=== PATIENT | male | born 1965 | race Caucasian/White ===

== ENCOUNTER 2017-03-25 07:01 | Day surgery (SDC) | payer OTHER ==
[2017-03-25] MEDS: NS 1,000 ML IV (07:12)
[2017-03-25] MEDS ORDERED: LIDOCAINE 2% INJ 100 MG/5 ML SDV (FOR ANES.) As Ordered (08:11)
[2017-03-25] MEDS ORDERED: PROPOFOL 200 MG/20 ML VIAL As Ordered (08:11)
== END 2017-03-25 08:36 | disposition home or self-care (01) ==
LOC: M OPP 07:01
DX: Z12.11 Encounter for screening for malignant neoplasm of colon (principal); K64.1 Second degree hemorrhoids; E78.5 Hyperlipidemia, unspecified; R12 Heartburn; K21.9 Gastro-esophageal reflux disease without esophagitis; Z87.891 Personal history of nicotine dependence; Z79.899 Other long term (current) drug therapy; Z80.9 Family history of malignant neoplasm, unspecified
CPT/HCPCS: 45378

== ENCOUNTER → 2020-12-28 | Outpatient (CLI) | payer OTHER ==
[~2020-12-28] MED LIST: ATOR40TA75 PO; EZET10TA21 PO; OMEP1CAP73 PO
--- NOTE | 2020-12-28 15:29 | REP ---
INDICATION: LT GROIN LUMP ? HERNIA. COMPARISON: None. TECHNIQUE: Targeted inguinal sonography. Scanning with and without Valsalva. FINDINGS: Targeted bilateral inguinal sonography is performed. Right inguinal canal measures 24 mm in AP dimension at rest and 28 mm with Valsalva. The corresponding dimensions of the left inguinal canal are 26 and 28 mm respectively. No bowel containing hernia is seen. No fluid is collection is seen. Hypoechoic fatty tissue is seen sliding within the inguinal canals bilaterally. This may be fatty hypertrophy of the spermatic cords or conceivably inguinal hernia transmitting abdominal fat. IMPRESSION: No bowel containing hernia or abnormal fluid collection is seen. Findings consistent with either lipomatous hypertrophy of the spermatic cords or fat containing inguinal hernias. CT scanning could be considered for further evaluation. <Electronically signed by Kevin Hinson > 12/28/20 1521
== END ==
LOC: M RAD 14:09
PROVIDERS: ATTEND Physician Assistant
DX: K40.90 Unilateral inguinal hernia, without obstruction or gangrene, not specified as recurrent (principal)

== ENCOUNTER → 2021-02-02 | Outpatient (CLI) | payer OTHER | LOC: M LABSMTC 11:21 | PROVIDERS: ATTEND Anesthesiology | DX: Z01.812 Encounter for preprocedural laboratory examination (principal); Z20.822 Contact with and (suspected) exposure to COVID-19 ==

== ENCOUNTER 2021-02-07 08:44 | Day surgery (SDC) | payer OTHER ==
[~2021-02-07] VITALS: Ht 177.8 cm; Wt 91.1 kg
[~2021-02-07 08:44] MED LIST changes: +LIDOCAINE 1% MDV 20ML VIAL SQ PRN; +LIDOCAINE 2% 100MG/5ML SDV (FOR ANES.) As Ordered ONE; +LR 1,000 ML IV ONE; +MIDAZOLAM INJ 2MG/2ML VIAL (J2250 PER 1MG) As Ordered ONE; +ONDANSETRON 4MG/2ML VIAL As Ordered ONE; +ROCURONIUM BROMIDE 50 MG/5 ML VIAL As Ordered ONE; +ceFAZolin SOD 2 GM in IV 1 EA IV ONE; +dexameTHASONE 4 MG/ML 1ML VIAL (J1100 PER 1MG) As Ordered ONE; +fentaNYL 100 MCG/2 ML INJECTION (J3010) As Ordered ONE; +propofoL 200 MG/20 ML VIAL As Ordered ONE
--- OUTSIDE RECORDS SUMMARY | 2021-02-07 08:51 | CCD | Continuity of Care Document ---
Author Author Myrna VeronicatowDevyn Monterroso Organization Unknown Address 3 [facility] [address] [place] [address] Phone [phone] Care Team Providers Care Hogshead Dumper Name Role Phone [facility] Cardiology - Cardiovascular Disease AUTM [phone] Problems Active Problems Provider Date Gastroesophageal reflux disease Yue Kincaid RPA Onset: 1 05/05/2004 Hyperlipidemia Yue Kincaid RPA Onset: 09/16/2005 Nocturia Daron Salamanca, RPA Onset: 03/28/2016 Hypercalcemia Daron Salamanca, RPA Onset: 04/05/2018 Social History Type Date Description Comments Sex Unknown Tobacco Use Start: Unknown End: Unknown Former Cigarette Smo ker 1/2 Pack Daily for 11 years Tobacco Use Start: Unknown Quit 1985. ETOH Use Rarely consumes beer Tobacco Use Start: Unknown End: Unknown Patient is a former smoker Exercise Type/Frequency Does not currently exerc ise Seat Belt/Car Seat yes Allergies, Adverse Reactions, Alerts Description No Known Drug Allergies Medications Active Medications SIG Qnty Indications Ordering Provide r Date Ezetimibe 10mg Tablets take one tablet by mouth every day 90tabs Reynaldo Penny D.O., FAAFP 11/2018 Eye Drops Advanced Relief Moisturizer 0.05-0.1-1-1% Solution 2 gtts tid OU 1units Reynaldo Penny D.O., FAAFP 09/22/2017 Atorvastatin Calcium 40mg Tablets take one tablet by mouth every day 90tabs Reynaldo Penny D.O., FAAFP 07/07/[address] Take One Capsule By Mouth Every Day 90caps Reynaldo Penny D.O. , FAAFP 06/04/2005 Medications Administered in Office Medication SIG Qnty Indications Ordering Provider Date Injection (SC)/(Im) Injection Daron Salamanca RPA 12/15/2019 Immunizations CPT Code Status Date Vaccine Lot # [id number] Given 12/15/2019 Influenza Virus Vaccine, Quadrivalent, Slit Virus, Im Use 3Y & Up [id number] Given 12/29/2017 Influenza Virus Vaccine, Quadrivalent, Slit Virus, Im Use 3Y & Up [id number] Refused 01/01/2016 Influenza Virus Vaccine, Quadrivalent, Slit Virus, Im Use 3Y & Up Vital Signs Date Vital Result Comment 06/27/2020 3:24pm BP Systolic 138 mmHg BP Diastolic 88 mmHg Body Temperature 97.1 F Heart Rate 97 /min Respiratory Rate 16 /min Height 71 inches 5'11" [place] Body Weight 172 lb O2 % BldC Oximetry 97 % 06/21/2020 1:31pm BP Systolic 124 mmHg BP Diastolic 88 mmHg Body Temperature 97.2 F Heart Rate 93 /min Respiratory Rate 16 /min Height 71 inches 5'11" [place] Body Weight 172 lb O2 % BldC Oximetry 96 % Results Test Acquired Date Facility Test Result H/L Range Note CMP 12/17/2020 [facility] Glu 102 mg/dL 70 - 110 BUN 14 mg/dL 8 - 23 Creat 0.9 mg/dL 0.7 - 1.2 BUN/Creatinine Ratio 15.8 Calc Na 142 mmol/L 136 - 145 K 4.7 mmol/L 3.5 - 5.1 CL 101.5 mmol/L 98.0 - 107.0 Co2 24.0 mmol/L 22.0 - 29.0 CA 10.2 mg/dL 8.6 - 10.2 TP 6.9 g/dL 6.6 - 8.7 Alb 4.9 g/dL 3.5 - 5.2 A/G Ratio 2.4 Calc Globulin 2.0 Calc Alp 118.7 U/L 40 - 129 Alt (SGPT) 26 U/L 0 - 41 Ast (Sgot) 18 U/L 0 - 40 Tbili 0.26 mg/dL 0.0 - 1.2 Osmolality-Calculated 283.2 Calc Anion Gap 21 mmol/L eGFR 109 # Calc 1 eGFR Non-Afr. [place] 94 # Calc 2 Lipid Panel 12/17/2020 [facility] Chol 222 mg/dL High 0 - 200 Trig 179 mg/dL 35 - 200 HDL 53 mg/dL 35 - 55 LDL_C 133 Calc High 75 - 129 Cho/HDL Ratio 4.2 CALC Surgical/Pathology 06/21/2020 [facility] [place] . See Comment: 3, 4 . See Comment: 5 . See Comment: 6 . See Comment: 7 . See Comment: 8 . See Comment: 9 . See Comment: 10 1 CKD-EPI 2 CKD-EPI 3 [id number] Material submitted: . buttock - CLIP, LEFT BUTTOCK 5 Clinician provided ICD-10: D48.5 6 Diagnosis: HYPERKERATOTIC FIBROEPITHELIAL PAPILLOMA, LEFT BUTTOCK, SHOWING VASCULAR CONGESTION AND THROMBOSIS. CIF 06/25/2020 1042 Local 7 Electronically signed: . Daron Aceves MD, Pathologist 8 Gross description: . Specimen received in formalin labeled "left buttock clip" is a 1.5 x 1.0 x 0.7 cm wrinkled clemente polypoid skin fragme nt with focal skin slippage. The cut surface is prominent congestion. No foreign body is identified. Cut surface has prominent congested vessels. It is bisected and submitted entirely. (1 block) DE /KWI 06/22/2020 1338 Local 9 Pathologist provided ICD-10: D23.5 10 CPT . 414983 Procedures Date Code Description Status 06/21/2020 63501 Excise Benign Lesion 1.1 To 2.0C M Trunk/Arm/Leg Completed Medical Devices Description No Information Available Encounters Type Date Location Provider Dx Diagnosis Office Visit 06/27/2020 3:15[facility] Office Daron Salamanca, RP A D48.5 Neoplasm of uncertain behavior of skin Z48.02 Encounter for removal of sut ures Assessments Date Code Description Provider 06/27/2020 D48.5 Neoplasm of uncertain behavior o f skin Daron Salamanca, RPA 06/27/2020 Z48.02 Encounter for removal of sutures Daron Salamanca, RPA 06/21/2020 D48.5 Neoplasm of uncertain behavior o f skin Daron Salamanca, LAURIE Plan of Treatment Future Appointment(s):* 12/24/2020 10:40 am - Daron Salamanca RPA at [facility][Note 3] Functional Status Description No Information Available Mental Status Description No Information Available Referrals Description No Information Available
--- OUTSIDE RECORDS SUMMARY | 2021-02-07 08:51 | CCD | Continuity of Care Document ---
Author Author Myrna VeronicatowDevyn Monterroso Organization Unknown Address 3 [facility] [address] [place] [address] Phone [phone] Care Team Providers Care Film Printer Name Role Phone [facility] Cardiology - Cardiovascular Disease AUTM [phone] Problems Active Problems Provider Date Gastroesophageal reflux [...] CPT Code Status Date Vaccine Lot # [id number] Given 12/15/2019 Influenza Virus Vaccine, Quadrivalent, Slit Virus, Im Use 3Y & Up [id number] 02244 Given 12/29/2017 Influenza Virus Vaccine, Quadrivalent, Slit Virus, Im Use 3Y & Up [id number] Refused 01/01/2016 Influenza Virus Vaccine, Quadrivalent, Slit Virus, Im Use 3Y & Up Vital Signs Date Vital Result Comment 06/27/2020 3:24pm BP Systolic 138 mmHg BP Diastolic 88 mmHg Body Temperature 97.1 F Heart Rate 97 /min Respiratory Rate 16 /min Height 71 inches 5'11" [place] Body Weight 172 lb O2 % BldC Oximetry 97 % 06/21/2020 1:31pm BP Systolic 124 mmHg BP Diastolic 88 mmHg Body Temperature 97.2 F Heart Rate 93 /min Respiratory Rate 16 /min Height 71 inches 5'11" [place] Body Weight 172 lb O2 % BldC [...] eGFR 109 # Calc 1 eGFR Non-Afr. Malag[place] 94 # Calc 2 Lipid Panel 12/17/2020 [...] Comment: 10 1 CKD-EPI 2 CKD-EPI 3 [id number] Material submitted: . buttock - CLIP, [...] Pathologist provided ICD-10: D23.5 10 CPT . 131934 Procedures Date Code Description Status 06/21/2020 05423 Excise Benign Lesion 1.1 To 2.0C M Trunk/Arm/Leg Completed Medical Devices Description No Information Available Encounters Type Date Location Provider Dx Diagnosis Office Visit 06/27/2020 3:15[facility] Daron Salamanca, RP A D48.5 Neoplasm of uncertain behavior of skin Z48.02 Encounter for removal of sut ures Assessments Date Code Description Provider 12/17/2020 E78.5 Hyperlipidemia, unspecified [facility] Adán luevano M.D. 12/17/2020 E78.5 Hyperlipidemia, unspecified [facility] [place] Schedule 06/27/2020 D48.5 Neoplasm of uncertain behavior o f skin Daron Salamanca, RPA 06/27/2020 Z48.02 Encounter for removal of sutures Daron Salamanca, RPA 06/21/2020 D48.5 Neoplasm of uncertain behavior o f skin Daron Salamanca, RPA Plan of Treatment Future Appointment(s):* 12/24/2020 10:40 am - Daron Salamanca, LAURIE at [facility] Functional Status Description No Information Available Mental Status Description No Information Available Referrals Description No Information Available
--- OUTSIDE RECORDS SUMMARY | 2021-02-07 08:51 | CCD | Continuity of Care Document ---
Author Devyn Nicole DO Organization Unknown Address [address] [facility], [address] [place] [address] Phone [phone] Care Team Providers Care Coloring Room Worker Name Role Phone [facility] [phone] Problems Description No Information Available Social History Type Date Description Comments Sex Unknown ETOH Use Denies alcohol use Recreational Drug Use Denies Drug Use Tobacco Use Start: Unknown End: Unknown Patient is a former smoker Allergies and adverse reactions Description No Known Drug Allergies Medications Active Medications SIG Qnty Indications Ordering Provide r Date Atorvastatin Calcium 40mg Tablets once daily Unknown Ezetimibe 10mg Tablets once d aily Unknown Omeprazole 20mg Capsules DR 20 mg by mouth daily Unknown Immunizations Description No Information Available Vital Signs Date Vital Result Comment 01/17/2021 9:41am BP Systolic 162 mmHg BP Diastolic 96 mmHg Body Temperature 99.1 F Height 70 inches 5'10" Weight 202.50 lb BMI (Body Mass Index) 29.1 kg/m2 [place] Body Weight 166 lb Weight 91.854 kg BSA (Body Surface Area) 2.10 m2 03/10/2017 10:15am BP Systolic 152 mmHg BP Diastolic 72 mmHg Height 70 inches 5'10" Weight 196.12 lb BMI (Body Mass Index) 28.1 kg/m2 [place] Body Weight 166 lb Weight 88.962 kg BSA (Body Surface Area) 2.07 m2 Results Description No Information Available Procedures Description No Information Available Medical Devices Description No Information Available Encounters Description No Information Available Assessments Date Code Description Provider 01/17/2021 K40.90 Unilateral inguinal hernia, without obstruction or gangrene, not specified as recurrent Carlton Anthony DO Plan of Treatment Future Appointment(s):* 02/19/2021 9:45 am - Carlton Anthony DO at [facility] * 02/07/2021 10:45 am - Carlton Anthony DO at [facility] 01/17/2021 - Carlton Anthony DO* K40.90 Unilateral inguinal hernia, without obstruction or gangrene, not specified as recurrent* Comments:* 55 y/o male presents with physical exam findings of left inguinal hernia. Recommendation at this time is to proceed with robotic assisted laparoscopic repair of the left hernia. The risks and benefits of the procedure were discussed in detail. The risks include, but are not limited to bleeding, infection, damage to gabbie rounding structures (arteries, veins, nerves, or bowel), need for open surgery, possibility of recurrance, and possible testicle loss. He understands the risks and elects to proceed with surgery. Functional Status Description No Information Available Mental Status Description No Information Available Referrals Refer to Reason for Referral Status Appt Date Carlton Anthony DKristiO. LT INGUINAL MASS Scheduled [address] [place] [address] [phone]
--- OUTSIDE RECORDS SUMMARY | 2021-02-07 08:51 | CCD | Continuity of Care Document ---
Author Author Devyn SALAMANAC [facility] Organization Unknown Address 3 [facility] [address] [place] [address] Phone [phone] Care Team Providers Care Appeals Representative Name Role Phone [place] [facility] [place] Cardiology - Cardiovascular Disease AUTM [phone] Problems Active Problems Provider Date Gastroesophageal reflux disease Yue Kincaid RPA Onset: 1 05/05/2004 Hyperlipidemia Yue Kincaid RPA Onset: 09/16/2005 Nocturia Daron Salamanca RPA Onset: 03/28/2016 Hypercalcemia Daron Salamanca RPA Onset: 04/05/2018 Social History Type Date [...] SIG Qnty Indications Ordering Provide r Date Kate Covid-19 Vaccine 0.5ml [facility] Reynaldo Penny D.O., [facility] Ezetimibe 10mg Tablets take one tablet by [...] CPT Code Status Date Vaccine Lot # 42329 Given 12/24/2020 Influenza Virus Vaccine, Quadrivalent, Slit Virus, Im Use 3Y & Up [id number] Given 12/15/2019 Influenza Virus Vaccine, Quadrivalent, Slit Virus, Im Use 3Y & Up [id number] 94700 Given 12/29/2017 Influenza Virus Vaccine, Quadrivalent, Slit Virus, Im Use 3Y & Up [id number] Refused 01/01/2016 Influenza Virus Vaccine, Quadrivalent, Slit Virus, Im Use 3Y & Up Vital Signs Date Vital Result Comment 12/24/2020 10:44am BP Systolic 120 mmHg BP Diastolic 90 mmHg Body Temperature 97.8 F Heart Rate 95 /min Respiratory Rate 16 /min Height 71 inches 5'11" Weight 199.00 lb [place] Body Weight 172 lb BMI (Body Mass Index) 27.8 kg/m2 O2 % BldC Oximetry 98 % 06/27/2020 3:24pm BP Systolic 138 mmHg BP Diastolic 88 mmHg Body Temperature 97.1 F Heart Rate 97 /min Respiratory Rate 16 /min Height 71 inches 5'11" [place] Body Weight 172 lb O2 % BldC Oximetry 97 % Results Test Acquired Date Facility Test [...] eGFR 109 # Calc 1 eGFR Non-Afr. [place] 94 # Calc 2 Lipid Panel 12/17/2020 [facility] Chol 222 mg/dL High 0 - 200 Trig 179 mg/dL 35 - 200 HDL 53 mg/dL 35 - 55 LDL_C 133 Calc High 75 - 129 Cho/HDL Ratio 4.2 CALC 1 CKD-EPI 2 CKD-EPI Procedures Description No Information Available Medical Devices Description No Information Available Encounters Type Date Location Provider Dx Diagnosis Office Visit 06/27/2020 3:15p [facility] Daron Salamanca, RP A D48.5 Neoplasm of uncertain behavior of skin Z48.02 Encounter for removal of sut ures Assessments Date Code Description Provider 12/24/2020 K40.90 Unilateral inguinal hernia, without obstruction or gangrene, not specified as recurrent Daron Salamanca RPA 12/24/2020 E78.5 Hyperlipidemia, unspecified Daron Barger RPA 12/24/2020 K21.9 Gastro-esophageal reflux disease without esophagitis Daron Salamanca, LAURIE 12/17/2020 E78.5 Hyperlipidemia, unspecified [facility] Adán luevano M.D. 12/17/2020 E78.5 Hyperlipidemia, unspecified [facility] Schedule 06/27/2020 D48.5 Neoplasm of uncertain behavior o f skin Daron Salamanca RPA 06/27/2020 Z48.02 Encounter for removal of sutures Daron Salamanca RPA Plan of Treatment Future Appointment(s):* 07/01/2021 8:30 am - Daron Salamanca RPA at [facility] * 06/24/2021 9:00 am - Laboratory [facility] Schedule at [facility] [place] Functional Status Description No Information Available Mental Status Description No Information Available Referrals Description No Information Available
--- OUTSIDE RECORDS SUMMARY | 2021-02-07 08:51 | CCD | Continuity of Care Document ---
Author Author Devyn SALAMANCA [facility] Organization Unknown Address [address] [facility] [address] [place] [address] Phone [phone] Care Team Providers Care Supervisor Typesetting Name Role Phone [facility] [place] Cardiology - Cardiovascular Disease AUTM [phone] Problems Active Problems Provider Date Gastroesophageal reflux [...] Provide r Date Kate Covid-19 Vaccine 0.5ml [facility] Reynaldo Penny D.O., [facility] Ezetimibe 10mg Tablets take one tablet by [...] CPT Code Status Date Vaccine Lot # 43498 Given 12/24/2020 Influenza Virus Vaccine, Quadrivalent, Slit Virus, Im Use 3Y & Up [id number] 03102 Given 12/15/2019 Influenza Virus Vaccine, Quadrivalent, Slit Virus, Im Use 3Y & Up [id number] [id number] Given 12/29/2017 Influenza Virus Vaccine, Quadrivalent, Slit Virus, Im Use 3Y & Up [id number] Refused 01/01/2016 Influenza Virus Vaccine, Quadrivalent, Slit Virus, Im Use 3Y & Up Vital Signs Date Vital Result Comment 12/24/2020 10:44am BP Systolic 120 mmHg BP Diastolic 90 mmHg Body Temperature 97.8 F Heart Rate 95 /min Respiratory Rate 16 /min Height 71 inches 5'11" Weight 199.00 lb [place] Body Weight 172 lb BMI (Body Mass Index) 27.8 kg/m2 O2 % BldC Oximetry 98 % 06/27/2020 3:24pm BP Systolic 138 mmHg BP Diastolic 88 mmHg Body Temperature 97.1 F Heart Rate 97 /min Respiratory Rate 16 /min Height 71 inches 5'11" [place] Body Weight 172 lb O2 % BldC [...] eGFR 109 # Calc 1 eGFR Non-Afr. [place]vian 94 # Calc 2 Lipid Panel 12/17/2020 [facility]house Chol 222 mg/dL High 0 - 200 Trig 179 mg/dL 35 - 200 HDL 53 mg/dL 35 - 55 LDL_C 133 Calc High 75 - 129 Cho/HDL Ratio 4.2 CALC 1 CKD-EPI 2 CKD-EPI Procedures Date Code Description Status 12/24/2020 25209 Office/Outpatient Established Mo d MDM 30-39 Min Completed Medical Devices Description No Information Available Encounters Type Date Location Provider Dx Diagnosis Office Visit 12/24/2020 10:40a [place] [facility] Daron Salamanca, RP A K40.90 Unil inguinal hernia, w/o obst or gangr, not spcf as recur E78.5 Hyperlipidemia, unspecified K21.9 Gastro-esophageal reflux dis ease without esophagitis Z23 Encounter for immunization Office Visit 06/27/2020 3:15p [place] [facility] Daron Salamanca, RP A D48.5 Neoplasm of uncertain behavior of skin Z48.02 Encounter for removal of sut ures Assessments Date Code Description Provider 12/24/2020 K40.90 Unilateral inguinal hernia, without obstruction or gangrene, not specified as recurrent Daron Salamanca, RPA 12/24/2020 E78.5 Hyperlipidemia, unspecified Daron Barger, RPA 12/24/2020 K21.9 Gastro-esophageal reflux disease without esophagitis Daron Salamanca, RPA 12/24/2020 Z23 Encounter for immunization Daron Quinn, RPA 12/17/2020 E78.5 Hyperlipidemia, unspecified [facility] Adán luevano M.D. 12/17/2020 E78.5 Hyperlipidemia, unspecified [facility] [place] Schedule 06/27/2020 D48.5 Neoplasm of uncertain behavior o f skin Daron Salamanca, RPA 06/27/2020 Z48.02 Encounter for removal of sutures Daron Salamanca, RPA Plan of Treatment Future Appointment(s):* 07/01/2021 8:30 am - Daron Salamanca RPA at [facility] * 06/24/2021 9:00 am - Laboratory [place] Schedule at [facility] Functional Status Description No Information Available Mental Status Description No Information Available Referrals Description No Information Available
--- OUTSIDE RECORDS SUMMARY | 2021-02-07 08:51 | CCD | Continuity of Care Document ---
Author Author Devyn ANTHONY DO Organization Unknown Address [address], [address] [place] [address] Phone [phone] Care Team Providers Care Job Press Operator Name Role Phone Daron Salamanca [facility] [phone] Problems Description No Information Available Social [...] lb BMI (Body Mass Index) 29.1 kg/m2 [place] Body Weight 166 lb Weight 91.854 kg BSA (Body Surface Area) 2.10 m2 03/10/2017 10:15am BP Systolic 152 mmHg BP Diastolic 72 mmHg Height 70 inches 5'10" Weight 196.12 lb BMI (Body Mass Index) 28.1 kg/m2 [place] Body Weight 166 lb Weight 88.962 kg BSA (Body Surface Area) 2.07 m2 Results Description No Information Available Procedures Date Code Description Status 01/17/2021 21682 Office/Outpatient New Moderate M DM 45-59 Minutes Completed Medical Devices Description No Information Available Encounters Type Date Location Provider Dx Diagnosis Office Visit 01/17/2021 9:30a [facility] Carlton Anthony DO K40.90 Unil inguinal hernia, w/o obst or gangr, not spcf as recur Assessments Date Code Description Provider 01/17/2021 K40.90 Unilateral inguinal hernia, without obstruction or gangrene, not specified as recurrent Carlton Anthony DO Plan of Treatment Future Appointment(s):* 02/19/2021 9:45 am - Carlton Anthony DO at [facility] * 02/07/2021 10:45 am - Carlton Anthony DO at [facility] 01/17/2021 - Carlton Anthony DO* [...] for Referral Status Appt Date Carlton Anthony D.O. LT INGUINAL MASS Scheduled [address] [place] [address] [phone]
--- OUTSIDE RECORDS SUMMARY | 2021-02-07 08:51 | CCD | Continuity of Care Document ---
Author Author Myrna VeronicatowDevyn Monterroso Organization Unknown Address [address] [facility] [address] [place] [address] Phone [phone] Care Team Providers Care Processing Supervisor Name Role Phone [facility] Cardiology - Cardiovascular Disease AUTM [phone] Problems Active Problems Provider Date Gastroesophageal reflux [...] CPT Code Status Date Vaccine Lot # [id number] Given 12/15/2019 Influenza Virus Vaccine, Quadrivalent, Slit Virus, Im Use 3Y & Up [id number] [id number] Given 12/29/2017 Influenza Virus Vaccine, Quadrivalent, Slit Virus, Im Use 3Y & Up [id number] Refused 01/01/2016 Influenza Virus Vaccine, Quadrivalent, Slit Virus, Im Use 3Y & Up Vital Signs Date Vital Result Comment 06/27/2020 3:24pm BP Systolic 138 mmHg BP Diastolic 88 mmHg Body Temperature 97.1 F Heart Rate 97 /min Respiratory Rate 16 /min Height 71 inches 5'11" [place] Body Weight 172 lb O2 % BldC Oximetry 97 % 06/21/2020 1:31pm BP Systolic 124 mmHg BP Diastolic 88 mmHg Body Temperature 97.2 F Heart Rate 93 /min Respiratory Rate 16 /min Height 71 inches 5'11" [place] Body Weight 172 lb O2 % BldC Oximetry 96 % Results Test Acquired Date Facility Test Result H/L Range Note Surgical/Pathology 06/21/2020 [facility] [place] . See Comment: 1, 2 . See Comment: 3 . See Comment: 4 . See Comment: 5 . See Comment: 6 . See Comment: 7 . See Comment: 8 1 [id number] Material submitted: . buttock - CLIP, LEFT BUTTOCK 3 Clinician provided ICD-10: D48.5 4 Diagnosis: HYPERKERATOTIC FIBROEPITHELIAL PAPILLOMA, LEFT BUTTOCK, SHOWING VASCULAR CONGESTION AND THROMBOSIS. CIF 06/25/2020 1042 Local 5 Electronically signed: . Daron Aceves MD, Pathologist 6 Gross description: . Specimen received in formalin labeled "left buttock clip" is a 1.5 x 1.0 x 0.7 cm wrinkled clemente polypoid skin fragme nt with focal skin slippage. The cut surface is prominent congestion. No foreign body is identified. Cut surface has prominent congested vessels. It is bisected and submitted entirely. (1 block) DE /KWI 06/22/2020 1338 Local 7 Pathologist provided ICD-10: D23.5 8 CPT . 160815 Procedures Date Code Description Status 06/21/2020 23778 Excise Benign Lesion 1.1 To 2.0C M Trunk/Arm/Leg Completed Medical Devices Description No Information Available Encounters Type Date Location Provider Dx Diagnosis Office Visit 06/27/2020 3:15p [place] [facility] Daron Salamanca, RP A D48.5 Neoplasm of uncertain behavior of skin Z48.02 Encounter for removal of sut ures Assessments Date Code Description Provider 06/27/2020 D48.5 Neoplasm of uncertain behavior o f skin Daron Salamanca, RPA 06/27/2020 Z48.02 Encounter for removal of sutures Daron Salamanca, LAURIE 06/21/2020 D48.5 Neoplasm of uncertain behavior o f Daron Reyna, LAURIE Plan of Treatment Future Appointment(s):* 12/24/2020 10:40 am - Daron Salamanca RPA at [facility] Functional Status Description No Information Available Mental Status Description No Information Available Referrals Description No Information Available
--- OUTSIDE RECORDS SUMMARY | 2021-02-07 08:51 | CCD | Continuity of Care Document ---
Author Author Devyn SALAMANCA [facility] Organization Unknown Address [address] [facility] [address] [place] [address] Phone [phone] Care Team Providers Care Recordist Chief Name Role Phone [place] [facility] [place] Cardiology - Cardiovascular Disease AUTM [phone] Problems Active Problems Provider Date Gastroesophageal reflux [...] currently exerc ise Seat Belt/Car Seat yes Allergies and adverse reactions Description No Known Drug Allergies Medications Active Medications SIG Qnty Indications Ordering Provide r Date Kate Covid-19 Vaccine 0.5ml [facility] Reynaldo Penny D.O., FAAFP Ezetimibe 10mg Tablets take one tablet by mouth every day 90tabs Reynaldo Penny D.O., FAAFP 11/2018 Eye Drops Advanced Relief Moisturizer 0.05-0.1-1-1% Solution 2 gtts tid OU 1units Reynaldo Penny D.O., FAAFP 09/22/2017 Atorvastatin Calcium 40mg Tablets take one tablet by mouth every day 90tabs Reynaldo Penny D.O., FAAFP 07/07/[address] Take One Capsule By Mouth Every Day 90caps Reynaldo J. Fish, D.O. , FAAFP 06/04/2005 Medications Administered in Office Medication SIG Qnty Indications Ordering Provider Date Injection (SC)/(Im) Injection Daron Salamanca RPA 12/15/2019 Immunizations CPT Code Status Date Vaccine Lot # 24729 Given 12/24/2020 Influenza Virus Vaccine, Quadrivalent, Slit Virus, Im Use 3Y & Up [id number] 87426 Given 12/15/2019 Influenza Virus Vaccine, Quadrivalent, Slit Virus, Im Use 3Y & Up [id number] 92741 Given 12/29/2017 Influenza Virus Vaccine, Quadrivalent, Slit Virus, Im Use 3Y & Up [id number] Refused 01/01/2016 Influenza Virus Vaccine, Quadrivalent, Slit Virus, Im Use 3Y & Up Vital Signs Date Vital Result Comment 01/31/2021 9:12am BP Systolic 130 mmHg BP Diastolic 88 mmHg Body Temperature 97.8 F Heart Rate 88 /min Respiratory Rate 16 /min Height 71 inches 5'11" Weight 206.00 lb [place] Body Weight 172 lb BMI (Body Mass Index) 28.7 kg/m2 O2 % BldC Oximetry 97 % 12/24/2020 10:44am BP Systolic 120 mmHg BP Diastolic 90 mmHg Body Temperature 97.8 F Heart Rate 95 /min Respiratory Rate 16 /min Height 71 inches 5'11" Weight 199.00 lb [place] Body Weight 172 lb BMI (Body Mass Index) 27.8 kg/m2 O2 % BldC Oximetry 98 % Results Test Acquired Date Facility Test Result H/L Range Note Coronavirus 2019 Nasopharygeal 02/02/2021 [facility] (Interface) [phone] Coronavirus 2019 Nasopharygeal ASSAY INFORMATIO <SEE N OTE> 1 CBC 01/31/2021 [facility]/Inhouse WBC 7.7 10E3/uL 4.1 - 10.9 2 RBC 5.10 10E6/uL 4.20 - 6.30 HGB 16.0 g/dL 12.0 - 18.0 HCT 46.4 % 37.0 - 51.0 MCV 91.0 fL 80.0 - 97.0 MCH 31.4 pg 26.0 - 32.0 MCHC 34.5 g/dL 31.0 - 36.0 PLT 301 10E3/uL 140 - 440 RDW-CV 13.4 % 11.5 - 14.5 Lym% 21.5 % 10.0 - 58.5 Neut% 67.8 % 37.0 - 92.0 MXD% 10.7 % 0.1 - 24.0 Lym# 1.7 10E3/uL 0.6 - 4.1 Neut# 5.2 % 2.0 - 7.8 MXD# 0.8 10E3/uL 0.0 - 1.8 MPV 10.1 fL 9.0 - 13.0 [facility] 01/31/2021 [facility]/Inhouse Glu 103 mg/dL 70 - 110 BUN 13 mg/dL 8 - 23 Creat 0.9 mg/dL 0.7 - 1.2 BUN/Creatinine Ratio 15.4 CALC Na 142 mmol/L 136 - 145 K 5.4 mmol/L High 3.5 - 5.1 CL 103.0 mmol/L 98.0 - 107.0 Co2 25.7 mmol/L 22.0 - 29.0 CA 10.7 mg/dL High 8.6 - 10.2 TP 6.9 g/dL 6.6 - 8.7 Alb 4.8 g/dL 3.5 - 5.2 A/G Ratio 2.3 CALC Globulin 2.1 CALC Alp 118.7 U/L 40 - 129 Alt (SGPT) 29 U/L 0 - 41 Ast (Sgot) 18 U/L 0 - 40 Tbili 0.39 mg/dL 0.0 - 1.2 Osmolality-Calculated 282.9 CALC Anion Gap 18 mmol/L eGFR 109 # Calc 3 eGFR Non-Afr. [place]gu[place] 94 # Calc 4 CMP 12/17/2020 [facility]/Inhouse Glu 102 mg/dL 70 [...] Gap 21 mmol/L eGFR 109 # Calc 5 eGFR Non-Afr. [place] 94 # Calc 6 Lipid Panel 12/17/2020 [facility]/Inhouse Chol 222 mg/dL High 0 - 200 Trig 179 mg/dL 35 - 200 HDL 53 mg/dL 35 - 55 LDL_C 133 Calc High 75 - 129 Cho/HDL Ratio 4.2 CALC 1 ASSAY INFORMATION: Real Time RT-PCR NOTE: The COVID-19 assay has been cleared by the U.S. Food and Drug Administration under the Emergency Use Authorization (EUA). [facility] and [facility] are designated as high complexity laboratories by the Clinical Laboratory Improvement Amendments of 1988(CLIA) and are qualified to perform this test. Not Detected 2 NORMAL RANGES Age WBC RBC HGB HCT MCV PLT Adult M 4.1-10.9 4.20-6.30 12.0-18.0 37.0-51.0 80-97 140-440 Adult F 4.1-10.9 4.04-5.48 12.0-18.0 37.0-51.0 80-97 140-440 0 -1 Yr 5.0-20.0 3.9-5.9 15-18 MV: 44 MV: 91 MV: 277 2-9 Yr. 6.0-17.0 3.8-5.4 11-13 MV: 37 MV: 78 MV: 300 10 Yrs. 5.0-13.0 3.8-5.4 12-15 MV: 39 MV: 80 MV: 250 NOTE: * FOR ADULT BLACK MALES AND FEMALES, NORMAL WBC IS 2.9-7.7 K/ML * FOR ADULT BLACK MALES AND FEMALES, NORMAL RBC,HGB, AND HCT IS 5% LESS SOURCE FOR DATA: ALVAR[employer]O DYN 1800 OPERATION MANUAL( AUTOMATED BLOOD COUNTS AND DIFF.) APPENDIX B-3 CHRONIC KIDNEY DISEASE STAGING PER NKF: MALE GFR INTERPRETATION: 20-49 YRS: >60 mL/min Normal 50-59 YRS: >56 mL/min Normal 60-69 YRS: >49 mL/min Normal 70-79 YRS: >42 mL/min Normal 80 and above >35 mL/min Normal FEMALE GRF INTERPRETATION: 20-39 YRS: >60 mL/min Normal 40-49 YRS: >58 mL/min Normal 50-59 YRS: >51 mL/min Normal 60-69 YRS: >45 mL/min Normal 70-79 YRS: >39 mL/min Normal 80 and above >32 mL/min Normal 3 CKD-EPI 4 CKD-EPI 5 CKD-EPI 6 CKD-EPI Procedures Date Code Description Status 01/31/2021 61725 Office/Outpatient Established Mo d MDM 30-39 Min Completed 01/31/2021 50628 Electrocardiogram Complete Compl eted 12/24/2020 59763 Office/Outpatient Established Mo d MDM 30-39 Min Completed Medical Devices Description No Information Available Encounters Type Date Location Provider Dx Diagnosis Office Visit 01/31/2021 9:00a [place] [facility] Daron Salamanca, RP A Z01.818 Encounter for other preprocedural examination K40.90 Unil inguinal hernia, w/o ob st or gangr, not spcf as recur E78.5 Hyperlipidemia, unspecified Office Visit 12/24/2020 10:40a [place] [facility] Daron Salamanca, RP A K40.90 Unil inguinal hernia, w/o obst or gangr, not spcf as recur E78.5 Hyperlipidemia, unspecified K21.9 Gastro-esophageal reflux dis ease without esophagitis Z23 Encounter for immunization Assessments Date Code Description Provider 01/31/2021 Z01.818 Encounter for other preprocedura l examination Daron Salamanca, RPA 01/31/2021 K40.90 Unilateral inguinal hernia, without obstruction or gangrene, not specified as recurrent Daron Salamanca, RPA 01/31/2021 E78.5 Hyperlipidemia, unspecified [facility] Daron benoit, RPA 12/24/2020 K40.90 Unilateral inguinal hernia, without obstruction or gangrene, not specified as recurrent Daron Salamanca, RPA 12/24/2020 E78.5 Hyperlipidemia, unspecified Hinm Daron benoit, RPA 12/24/2020 K21.9 Gastro-esophageal reflux disease without esophagitis Daron Salamanca, RPA 12/24/2020 Z23 Encounter for immunization Daron Quinn, RPA 12/17/2020 E78.5 Hyperlipidemia, unspecified [facility] Adán luevano M.D. 12/17/2020 E78.5 Hyperlipidemia, unspecified Labo ratory [place] Schedule Plan of Treatment Future Appointment(s):* 07/01/2021 8:30 am - Daron Salamanca, LAURIE at [place] [facility] * 06/24/2021 9:00 am - [facility] [place] [facility] Functional Status Description No Information Available Mental Status Description No Information Available Referrals Refer to Reason for Referral Status Appt Date Carlton Anthony D.O. Left inguinal mass--see ultrasound results Sent 01/10/[address] [place] [address], [address] [place] [address] [phone]
--- OUTSIDE RECORDS SUMMARY | 2021-02-07 08:51 | CCD | Continuity of Care Document ---
Author Author Devyn SALAMANCA [facility] Organization Unknown Address 3 [facility] [address] [place] [address] Phone [phone] Care Team Providers Care Web Applications Administrator Name Role Phone [facility] [place] Cardiology - Cardiovascular Disease AUTM [phone] Problems Active Problems Provider Date Gastroesophageal reflux [...] Provide r Date Kate Covid-19 Vaccine 0.5ml [facility] Reynaldo Penny D.O., FAAFP Ezetimibe 10mg Tablets [...] CPT Code Status Date Vaccine Lot # 82435 Given 12/24/2020 Influenza Virus Vaccine, Quadrivalent, Slit Virus, Im Use 3Y & Up [id number] 16107 Given 12/15/2019 Influenza Virus Vaccine, Quadrivalent, Slit Virus, Im Use 3Y & Up [id number] 46282 Given 12/29/2017 Influenza Virus Vaccine, Quadrivalent, Slit Virus, Im Use 3Y & Up [id number] Refused 01/01/2016 Influenza Virus Vaccine, Quadrivalent, Slit Virus, Im Use 3Y & Up Vital Signs Date Vital Result Comment 01/31/2021 9:12am BP Systolic 130 mmHg BP Diastolic 88 mmHg Body Temperature 97.8 F Heart Rate 88 /min Respiratory Rate 16 /min Height 71 inches 5'11" Weight 206.00 lb [place] Body Weight 172 lb BMI (Body Mass Index) 28.7 kg/m2 O2 % BldC Oximetry 97 % 12/24/2020 10:44am BP Systolic 120 mmHg BP Diastolic 90 mmHg Body Temperature 97.8 F Heart Rate 95 /min Respiratory Rate 16 /min Height 71 inches 5'11" Weight 199.00 lb [place] Body Weight 172 lb BMI (Body Mass Index) 27.8 kg/m2 O2 % BldC Oximetry 98 % Results Test Acquired Date Facility Test Result H/L Range Note Coronavirus 2019 Nasopharygeal 02/02/2021 [facility] (Interface) [phone] Coronavirus 2019 Nasopharygeal ASSAY INFORMATIO <SEE N [...] 1.8 MPV 10.1 fL 9.0 - 13.0 [facility] 01/31/2021 F[facility]/Inhouse Glu 103 mg/dL 70 - [...] eGFR 109 # Calc 3 eGFR Non-Afr. Singaporean 94 # Calc 4 CMP 12/17/2020 F[facility]/Inhouse [...] eGFR 109 # Calc 5 eGFR Non-Afr. Singaporean 94 # Calc 6 Lipid Panel 12/17/2020 [...] Administration under the Emergency Use Authorization (EUA). [facility] [employer] [facility] are designated as high complexity laboratories by [...] HCT IS 5% LESS SOURCE FOR DATA: ALVARDAO DYN 1800 OPERATION MANUAL( AUTOMATED BLOOD COUNTS [...] CKD-EPI Procedures Date Code Description Status 01/31/2021 52067 Office/Outpatient Established Mo d MDM 30-39 Min Completed 01/31/2021 18778 Electrocardiogram Complete Compl eted 12/24/2020 02463 Office/Outpatient Established Mo d MDM 30-39 Min Completed Medical Devices Description No Information Available Encounters Type Date Location Provider Dx Diagnosis Office Visit 01/31/2021 9:00a [place] [facility] Daron Salamanca, RP A Z01.818 Encounter for other preprocedural examination K40.90 Unil inguinal hernia, w/o ob st or gangr, not spcf as recur E78.5 Hyperlipidemia, unspecified Office Visit 12/24/2020 10:40a [facility] Daron Salamanca, RP A K40.90 Unil [...] Daron Quinn, RPA 12/17/2020 E78.5 Hyperlipidemia, unspecified [facility] Adán luevano M.D. 12/17/2020 E78.5 Hyperlipidemia, unspecified Labo ratory [place] Schedule Plan of Treatment Future Appointment(s):* 07/01/2021 8:30 am - Daron Salamanca, LAURIE at [facility] * 06/24/2021 9:00 am - [facility] [place] [facility] at [facility] Functional Status Description No Information Available Mental Status Description No Information Available Referrals Refer to Reason for Referral Status Appt Date Carlton Anthony D.O. Left inguinal mass--see ultrasound results Sent 01/10/[address] [place] [address], [address] [place] [address] [phone]
--- OUTSIDE RECORDS SUMMARY | 2021-02-07 08:51 | CCD | Continuity of Care Document ---
Author Author Devyn SALAMANCA [facility] Organization Unknown Address [address] [facility] [address] [place] [address] Phone [phone] Care Team Providers Care Packager Machine Name Role Phone [place] [facility] [place] Cardiology - Cardiovascular Disease AUTM [phone] Problems Active Problems Provider Date Gastroesophageal reflux [...] Provide r Date Kate Covid-19 Vaccine 0.5ml [facility] Reynaldo Penny D.O., FAAFP Ezetimibe 10mg [...] CPT Code Status Date Vaccine Lot # 48860 Given 12/24/2020 Influenza Virus Vaccine, Quadrivalent, Slit Virus, Im Use 3Y & Up [id number] 26382 Given 12/15/2019 Influenza Virus Vaccine, Quadrivalent, Slit Virus, Im Use 3Y & Up [id number] 66534 Given 12/29/2017 Influenza Virus Vaccine, Quadrivalent, Slit Virus, Im Use 3Y & Up [id number] 62424 Refused 01/01/2016 Influenza Virus Vaccine, Quadrivalent, Slit Virus, Im Use 3Y & Up Vital Signs Date Vital Result Comment 01/31/2021 9:12am BP Systolic 130 mmHg BP Diastolic 88 mmHg Body Temperature 97.8 F Heart Rate 88 /min Respiratory Rate 16 /min Height 71 inches 5'11" Weight 206.00 lb [place] Body Weight 172 lb BMI (Body Mass Index) 28.7 kg/m2 O2 % BldC Oximetry 97 % 12/24/2020 10:44am BP Systolic 120 mmHg BP Diastolic 90 mmHg Body Temperature 97.8 F Heart Rate 95 /min Respiratory Rate 16 /min Height 71 inches 5'11" Weight 199.00 lb [place] Body Weight 172 lb BMI (Body Mass Index) 27.8 kg/m2 O2 % BldC Oximetry 98 % Results Test Acquired Date Facility Test Result H/L Range Note CBC 01/31/2021 [facility]/Inhouse WBC 7.7 10E3/uL 4.1 - 10.9 1 RBC 5.10 10E6/uL 4.20 - 6.30 HGB [...] 1.8 MPV 10.1 fL 9.0 - 13.0 [facility] 01/31/2021 F[facility]/Inhouse Glu 103 mg/dL 70 [...] Gap 18 mmol/L eGFR 109 # Calc 2 eGFR Non-Afr. Bur[place]an 94 # Calc 3 [facility] 12/17/2020 [facility]/Inhouse Glu 102 mg/dL 70 - [...] Gap 21 mmol/L eGFR 109 # Calc 4 eGFR Non-Afr. Burkinan 94 # Calc 5 Lipid Panel 12/17/2020 [facility]/Inhouse Chol 222 mg/dL High 0 - 200 Trig 179 mg/dL 35 - 200 HDL 53 mg/dL 35 - 55 LDL_C 133 Calc High 75 - 129 Cho/HDL Ratio 4.2 CALC 1 NORMAL RANGES Age WBC RBC HGB HCT [...] HCT IS 5% LESS SOURCE FOR DATA: [employer] 1800 OPERATION MANUAL( AUTOMATED BLOOD COUNTS AND [...] Normal 80 and above >32 mL/min Normal 2 CKD-EPI 3 CKD-EPI 4 CKD-EPI 5 CKD-EPI Procedures Date Code Description Status 01/31/2021 51238 Office/Outpatient Established Mo d MDM 30-39 Min Completed 01/31/2021 15548 Electrocardiogram Complete Compl eted 12/24/2020 59391 Office/Outpatient Established Mo d MDM 30-39 Min Completed Medical Devices Description No Information Available Encounters Type Date Location Provider Dx Diagnosis Office Visit 01/31/2021 9:00a [place] [facility] Daron Salamanca, RP A Z01.818 Encounter for other preprocedural examination K40.90 Unil inguinal hernia, w/o ob st or gangr, not spcf as recur E78.5 Hyperlipidemia, unspecified Office Visit 12/24/2020 10:40a [place] [facility] Daron Salamanca, RP A K40.90 Unil [...] Daron Salamanca, RPA 01/31/2021 E78.5 Hyperlipidemia, unspecified Daron Barger, RPA 12/24/2020 K40.90 Unilateral inguinal hernia, without obstruction or gangrene, not specified as recurrent Daron Salamanca, RPA 12/24/2020 E78.5 Hyperlipidemia, unspecified Daron Barger, LAURIE 12/24/2020 K21.9 Gastro-esophageal reflux disease without esophagitis Daron Salamanca RPA 12/24/2020 Z23 Encounter for immunization Daron Quinn RPA 12/17/2020 E78.5 Hyperlipidemia, unspecified [facility] Adán luevano M.D. 12/17/2020 E78.5 Hyperlipidemia, unspecified Labo ratory [place] Schedule Plan of Treatment Future Appointment(s):* 07/01/2021 8:30 am - Daron Salamanca RPA at [place] [facility] * 06/24/2021 9:00 am - Laboratory [place] Schedule at [facility] Functional Status Description No Information Available Mental Status Description No Information Available Referrals Refer to Reason for Referral Status Appt Date Carlton Anthony D.O. Left inguinal mass--see ultrasound results Sent 01/10/[address] [place] [address], [address] [place] [address] [phone]
--- OUTSIDE RECORDS SUMMARY | 2021-02-07 08:52 | CCD ---
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 Name Role Phone PETROFF, SRIDEVI PA Unavailable Unavailable PETROFF, SRIDEVI PA Unavailable Unavailable PETROFF, SRIDEVI PA Unavailable Unavailable PETROFF, SRIDEVI PA Unavailable Unavailable PETROFF, SRIDEVI PA Unavailable Unavailable PETROFF, SRIDEVI PA Unavailable Unavailable PETROFF, SRIDEVI PA Unavailable Unavailable PETROFF, SRIDEVI PA Unavailable Unavailable BRYDEN, A JAH DO Unavailable Unavailable BRYDEN, A JAH DO Unavailable Unavailable BRYDEN, A JAH DO Unavailable Unavailable BRYDEN, A JAH DO Unavailable Unavailable BRYDEN, A JAH DO Unavailable Unavailable BRYDEN, A JAH DO Unavailable Unavailable BRYDEN, A JAH DO Unavailable Unavailable BRYDEN, A JAH DO Unavailable Unavailable BRYDEN, A JAH DO Unavailable Unavailable BRYDEN, A JAH DO Unavailable Unavailable BRYDEN, A JAH DO Unavailable Unavailable BRYDEN, A JAH DO Unavailable Unavailable BRYDEN, A JAH DO Unavailable Unavailable BRYDEN, A JAH DO Unavailable Unavailable BRYDEN, A JAH DO Unavailable Unavailable BRYDEN, A JAH DO Unavailable Unavailable BRYDEN, A JAH DO Unavailable Unavailable BRYDEN, A JAH DO Unavailable Unavailable BRYDEN, A JAH DO Unavailable Unavailable BRYDEN, A JAH DO Unavailable Unavailable BRYDEN, A JAH DO Unavailable Unavailable BRYDEN, A JAH DO Unavailable Unavailable BRYDEN, A JAH DO Unavailable Unavailable BRYDEN, A JAH DO Unavailable Unavailable BRYDEN, A JAH DO Unavailable Unavailable BRYDEN, A JAH DO Unavailable Unavailable BRYDEN, A JAH DO Unavailable Unavailable BRYDEN, A JAH DO Unavailable Unavailable BRYPRERNA, A JAH DO Unavailable Unavailable Yuniel Salamanca PA Unavailable Unavailable Cheikh, D Daron PA Unavailable Unavailable Cheikh, D Daron PA Unavailable Unavailable Cheikh, D Daron PA Unavailable Unavailable Cheikh, D Daron PA Unavailable Unavailable Cheikh, D Daron PA Unavailable Unavailable Cheikh, D Daron PA Unavailable Unavailable Cheikh, D Daron PA Unavailable Unavailable Cheikh, D Daron PA Unavailable Unavailable Cheikh, D Daron PA Unavailable Unavailable Cheikh, D Daron PA Unavailable Unavailable Cheikh, D Daron PA Unavailable Unavailable Cheikh, D Daron PA Unavailable Unavailable Cheikh, D Daron PA Unavailable Unavailable Cheikh, D Daron PA Unavailable Unavailable Cheikh, D Daron PA Unavailable Unavailable Cheikh, D Daron PA Unavailable Unavailable Cheikh, D Daron PA Unavailable Unavailable Cheikh, D Daron PA Unavailable Unavailable Cheikh, D Daron PA Unavailable Unavailable Cheikh, D Daron PA Unavailable Unavailable Cheikh, D Daron PA Unavailable Unavailable Cheikh, D Daron PA Unavailable Unavailable Cheikh, D Daron PA Unavailable Unavailable Cheikh, D Daron PA Unavailable Unavailable Cheikh, D Daron PA Unavailable Unavailable Cheikh, D Daron PA Unavailable Unavailable Cheikh, D Daron PA Unavailable Unavailable Cheikh, D Daron PA Unavailable Unavailable Cheikh, D Daron PA Unavailable Unavailable Cheikh, D Daron PA Unavailable Unavailable Cheikh, D Daron PA Unavailable Unavailable Cheikh, D Daron PA Unavailable Unavailable Cheikh, D Daron PA Unavailable Unavailable Cheikh, D Daron PA Unavailable Unavailable Cheikh, D Daron PA Unavailable Unavailable Cheikh, D Daron PA Unavailable Unavailable Cheikh, D Daron PA Unavailable Unavailable Cheikh, D Daron PA Unavailable Unavailable Cheikh, D Daron PA Unavailable Unavailable Cheikh, D Daron PA Unavailable Unavailable Cheikh, D Daron PA Unavailable Unavailable Cheikh, D Daron PA Unavailable Unavailable Cheikh, D Daron PA Unavailable Unavailable Cheikh, D Daron PA Unavailable Unavailable Cheikh, D Daron PA Unavailable Unavailable Cheikh, D Daron PA Unavailable Unavailable Cheikh, D Daron PA Unavailable Unavailable Cheikh, D Daron PA Unavailable Unavailable Cheikh, D Daron PA Unavailable Unavailable Cheikh, D Daron PA Unavailable Unavailable Cheikh, D Daron PA Unavailable Unavailable Cheikh, D Daron PA Unavailable Unavailable Cheikh, D Daron PA Unavailable Unavailable Cheikh, D Daron PA Unavailable Unavailable Cheikh, D Daron PA Unavailable Unavailable Cheikh, D Daron PA Unavailable Unavailable Cheikh, D Daron PA Unavailable Unavailable Cheikh, D Daron PA Unavailable Unavailable Cheikh, D Daron PA Unavailable Unavailable Cheikh, D Daron PA Unavailable Unavailable Cheikh, D Daron PA Unavailable Unavailable Cheikh, D Daron PA Unavailable Unavailable Cheikh, D Daron PA Unavailable Unavailable Cheikh, D Daron PA Unavailable Unavailable Cheikh, D Daron PA Unavailable Unavailable Cheikh, D Daron PA Unavailable Unavailable Cheikh, D Daron PA Unavailable Unavailable Re-disclosure Warning The records that you are about to access may contain information from federally-assisted alcohol or drug abuse programs. If such information is present, then the following federally mandated warning applies: This information has been disclosed to you from records protected by federal confidentiality rules (42 CFR part 2). The federal rules prohibit you from making any further disclosure of this information unless further disclosure is expressly permitted by the written consent of the person to whom it pertains or as otherwise permitted by 42 CFR part 2. A general authorization for the release of medical or other information is NOT sufficient for this purpose. The Federal rules restrict any use of the information to criminally investigate or prosecute any alcohol or drug abuse patient.The records that you are about to access may contain highly sensitive health information, the redisclosure of which is protected by Article 27-F of the [facility] Public Health law. If you continue you may have access to information: Regarding HIV / AIDS; Provided by facilities licensed or operated by the [facility] Office of Mental Health; or Provided by the [facility] Office for People With Developmental Disabilities. If such information is present, then the following [facility] mandated warning applies: This information has been disclosed to you from confidential records which are protected by state law. State law prohibits you from making any further disclosure of this information without the specific written consent of the person to whom it pertains, or as otherwise permitted by law. Any unauthorized further disclosure in violation of state law may result in a fine or senior care sentence or both. A general authorization for the release of medical or other information is NOT sufficient authorization for further disc losure. Family History Family Member Name Family Member Gender Family Member Status Date o f Status Description Data Source(s) Unknown Male Problem [facility] ([facility], ) () Encounters Encounter Providers Location Date Indications Data Source(s ) Outpatient Attender: Daron BRYANT [place] Office 06/2020 09:00:00 AM EDT [facility] ([facility] Outpatient Attender: JAH Levy/Rusty/Sarkis/Stefano valenzuela 01/17/2021 09:30:00 AM EDT [facility] ([facility] Outpatient Attender: Daron BRYANT [place] Office 10:40:00 AM EDT [facility] ([facility] Office Visit Attender: Daron BRYANT [place] Office 03:15:00 PM EDT [facility] ([facility] Outpatient Attender: Daron BRYANT [place] Office 10:20:00 AM EDT [facility] ([facility] Outpatient Attender: Daron BRYANT [place] Office 10:20:00 AM EDT [facility] ([facility] Emergency Attender: SRIDEVI BRYANT 2017 11:36:00 AM [facility] 04/18/2017 12:30:00 PM [facility] Immunizations Vaccine Date Status Description Data Source(s) New in 2012. IIV4 12/24/2020 11:17:00 AM EDT completed [facility] ([facility] COVID-19 VACCINE Kate 07/08/2020 12:00:00 AM EDT completed [employer] Vaccine Series Complete: YESThis Data wa s Submitted to [facility] Via [employer]. New in 2012. IIV4 12/15/2019 10:58:00 AM EDT completed [facility] ([facility] Medications Medication Brand Name Start Date Product Form Dose Route Admi nistrative Instructions Pharmacy Instructions Status Indications Reaction Description Data Source(s) Kate Covid-19 Vaccine Kate Covid-19 Vaccine 12/24/2020 12:00: 00 AM EDT active [facility] ( [facility] 10 mg 12/09/2020 12:00:00 AM EDT tablet 90 TAKE ONE TABLET BY MOUTH EVERY DAY TAKE ONE TABLET BY MOUTH EVERY DAY SOLD: 12/10/2020 [facility] 20 mg 08/28/2020 12:00:00 AM EDT capsule,delayed release (DR/EC) 90 TAKE ONE CAPSULE BY MOUTH EVERY DAY MAXIMUM DAILY DOSE = 1 CAP TAKE ONE CAPSULE BY MOUTH EVERY DAY MAXIMUM DAILY DOSE = 1 CAP SOLD: 12/04/2020 [facility] 20 mg 08/28/2020 12:00:00 AM EDT capsule,delayed release (DR/EC) 90 TAKE ONE CAPSULE BY MOUTH EVERY DAY MAXIMUM DAILY DOSE = 1 CAP TAKE ONE CAPSULE BY MOUTH EVERY DAY MAXIMUM DAILY DOSE = 1 CAP SOLD: 08/30/2020 [facility] atorvastatin 40 MG Oral Tablet ATORVASTATIN CALCIUM 06/16/2020 1 2:00:00 AM EDT tablet 90 TAKE ONE TABLET BY MOUTH EVERY D AY MAXIMUM DAILY DOSE = 1 TAKE ONE TABLET BY MOUTH EVERY DAY MAXIMUM DAILY DOSE = 1 SOLD: 09/27/2020 [facility] atorvastatin 40 MG Oral Tablet ATORVASTATIN CALCIUM 06/16/2020 1 2:00:00 AM EDT tablet 90 TAKE ONE TABLET BY MOUTH EVERY D AY MAXIMUM DAILY DOSE = 1 TAKE ONE TABLET BY MOUTH EVERY DAY MAXIMUM DAILY DOSE = 1 SOLD: 06/22/2020 [facility] atorvastatin 40 MG Oral Tablet ATORVASTATIN CALCIUM 06/16/2020 1 2:00:00 AM EDT tablet 90 TAKE ONE TABLET BY MOUTH EVERY D AY MAXIMUM DAILY DOSE = 1 TAKE ONE TABLET BY MOUTH EVERY DAY MAXIMUM DAILY DOSE = 1 SOLD: 12/31/2020 [facility] ezetimibe 10 MG Oral Tablet EZETIMIBE 05/28/2020 12:00:00 AM EST table t 90 TAKE ONE TABLET BY MOUTH EVERY DAY TAKE ONE TABLET BY MOUTH EVERY DAY SOLD: 05/29/2020 [facility] 10 mg 05/28/2020 12:00:00 AM EST tablet 90 TAKE ONE TABLET BY MOUTH EVERY DAY TAKE ONE TABLET BY MOUTH EVERY DAY SOLD: 08/30/2020 [facility] Injection (SC)/(Im) 12/15/2019 12:00:00 AM EDT completed [facility] ([facility] Medication administered onsite ezetimibe 10 MG Oral Tablet EZETIMIBE 11/18/2019 12:00:00 AM EDT table t 90 TAKE ONE TABLET BY MOUTH EVERY DAY TAKE ONE TABLET BY MOUTH EVERY DAY SOLD: 02/21/2020 [facility] atorvastatin 40 MG Oral Tablet ATORVASTATIN CALCIUM 08/17/2019 1 2:00:00 AM EDT tablet 30 TAKE ONE TABLET BY MOUTH EVERY D AY MAXIMUM DAILY DOSE = 1 TAKE ONE TABLET BY MOUTH EVERY DAY MAXIMUM DAILY DOSE = 1 SOLD: 05/28/2020 [facility] atorvastatin 40 MG Oral Tablet ATORVASTATIN CALCIUM 08/17/2019 1 2:00:00 AM EDT tablet 30 TAKE ONE TABLET BY MOUTH EVERY D AY MAXIMUM DAILY DOSE = 1 TAKE ONE TABLET BY MOUTH EVERY DAY MAXIMUM DAILY DOSE = 1 SOLD: 04/27/2020 [facility] atorvastatin 40 MG Oral Tablet ATORVASTATIN CALCIUM 08/17/2019 1 2:00:00 AM EDT tablet 30 TAKE ONE TABLET BY MOUTH EVERY D AY MAXIMUM DAILY DOSE = 1 TAKE ONE TABLET BY MOUTH EVERY DAY MAXIMUM DAILY DOSE = 1 SOLD: 02/21/2020 [facility] 20 mg 08/17/2019 12:00:00 AM EDT capsule,delayed release (DR/EC) 90 TAKE ONE CAPSULE BY MOUTH EVERY DAY TAKE ONE CAPSULE BY MOUTH EVERY DAY SOLD: 02/21/2020 [facility] 20 mg 08/17/2019 12:00:00 AM EDT capsule,delayed release (DR/EC) 90 TAKE ONE CAPSULE BY MOUTH EVERY DAY TAKE ONE CAPSULE BY MOUTH EVERY DAY SOLD: 05/28/2020 [facility] atorvastatin 40 MG Oral Tablet ATORVASTATIN CALCIUM 08/17/2019 1 2:00:00 AM EDT tablet 30 TAKE ONE TABLET BY MOUTH EVERY D AY MAXIMUM DAILY DOSE = 1 TAKE ONE TABLET BY MOUTH EVERY DAY MAXIMUM DAILY DOSE = 1 SOLD: 03/27/2020 [facility] atorvastatin 40 MG Oral Tablet ATORVASTATIN CALCIUM 08/17/2019 1 2:00:00 AM EDT tablet 30 TAKE ONE TABLET BY MOUTH EVERY D AY MAXIMUM DAILY DOSE = 1 TAKE ONE TABLET BY MOUTH EVERY DAY MAXIMUM DAILY DOSE = 1 SOLD: 01/23/2020 [facility] atorvastatin 40 MG Oral Tablet ATORVASTATIN CALCIUM 08/17/2019 1 2:00:00 AM EDT tablet 30 TAKE ONE TABLET BY MOUTH EVERY D AY MAXIMUM DAILY DOSE = 1 TAKE ONE TABLET BY MOUTH EVERY DAY MAXIMUM DAILY DOSE = 1 SOLD: 12/21/2019 [facility] Insurance Providers Payer name Policy type / Coverage type Policy ID Covered republican ID Covered republican's relationship to brenner Policy Brenner Plan Information [facility] [id number] [facility] [id number] [facility] [id number] [facility] [id number] [facility] [id number] [facility] [id number] [facility] [id number] [facility] [id number] [facility] [place] [id number] Family Dependent [id number] Problems, Conditions, and Diagnoses No Information Surgeries/Procedures Procedure Description Date Indications Data Source(s) Electrocardiogram Complete 01/31/2021 12:00:00 AM EDT [facility] ([facility] OFFICE OUTPATIENT VISIT 25 MINUTES 01/31/2021 12:00:00 AM EDT [facility] ([facility] OFFICE OUTPATIENT NEW 45 MINUTES 01/17/2021 12:00:00 A M EDT [facility] ([facility], ) OFFICE OUTPATIENT VISIT 25 MINUTES 12/24/2020 12:00:00 AM EDT [facility] ([facility] Excise Benign Lesion 1.1 To 2.0CM Trunk/Arm/Leg 2020 12:00:00 AM EDT [facility] ([facility] Injection (SC)/(Im) 12/15/2019 12:00:00 AM EDT [facility] ([facility] Results ID Date Data Source [id number] 02/02/2021 11:25:00 AM EDT [facility] ([facility] Name Value Range Interpretation Code Description Data Dina rce(s) Supporting Document(s) Laboratory test finding (navigational concept) Laboratory test result [facility] ([facility] ASSAY INFORMATION: Real Time RT-PCR NOTE: The COVID-19 assay has been cleared by the U.S. Food and Drug Administration under the Emergency Use Authorization (EUA). Agency [facility] and [facility] are designated as high complexity laboratories by the Clinical Laboratory Improvement Amendments of 1988(CLIA) and are qualified to perform this test. Not Detected ID Date Data Source [id number] 01/31/2021 10:06:00 AM EDT [facility] ([facility] Name Value Range Interpretation Code Description Data Dina rce(s) Supporting Document(s) Glu 103 mg/dL 70-110 [facility] ([facility]) NORMAL RANGES Age WBC RBC HGB HCT [...] HCT IS 5% LESS SOURCE FOR DATA: [employer] 1800 OPERATION MANUAL( AUTOMATED BLOOD COUNTS AND [...] Normal 80 and above >32 mL/min Normal Creat 0.9 mg/dL 0.7-1.2 [facility] ([facility] NORMAL RANGES Age WBC RBC HGB HCT [...] HCT IS 5% LESS SOURCE FOR DATA: [employer] 1800 OPERATION MANUAL( AUTOMATED BLOOD COUNTS AND [...] Normal 80 and above >32 mL/min Normal BUN/Creatinine Ratio 15.4 [facility] ([facility] NORMAL RANGES Age WBC RBC HGB HCT [...] HCT IS 5% LESS SOURCE FOR DATA: [employer] 1800 OPERATION MANUAL( AUTOMATED BLOOD COUNTS [...] Normal 80 and above >32 mL/min Normal BUN 13 mg/dL 11-19 [facility] ([facility] NORMAL RANGES Age WBC RBC HGB HCT [...] HCT IS 5% LESS SOURCE FOR DATA: [employer] 1800 OPERATION MANUAL( AUTOMATED BLOOD COUNTS AND [...] Normal 80 and above >32 mL/min Normal CL 103.0 mmol/L 98.0-107.0 [facility] ([facility] NORMAL RANGES Age WBC RBC HGB HCT [...] HCT IS 5% LESS SOURCE FOR DATA: [employer] 1800 OPERATION MANUAL( AUTOMATED BLOOD COUNTS AND [...] Normal 80 and above >32 mL/min Normal Na 142 mmol/L 136-145 [facility] ([facility] NORMAL RANGES Age WBC RBC HGB HCT [...] HCT IS 5% LESS SOURCE FOR DATA: [employer] 1800 OPERATION MANUAL( AUTOMATED BLOOD COUNTS AND [...] Normal 80 and above >32 mL/min Normal K 5.4 mmol/L 3.5-5.1 Above high normal [facility] ([facility] NORMAL RANGES Age WBC RBC HGB HCT [...] HCT IS 5% LESS SOURCE FOR DATA: [employer] 1800 OPERATION MANUAL( AUTOMATED BLOOD COUNTS AND [...] Normal 80 and above >32 mL/min Normal Co2 25.7 mmol/L 22.0-29.0 [facility] NORMAL RANGES Age WBC RBC HGB HCT [...] HCT IS 5% LESS SOURCE FOR DATA: [employer] 1800 OPERATION MANUAL( AUTOMATED BLOOD COUNTS AND [...] Normal 80 and above >32 mL/min Normal CA 10.7 mg/dL 8.6-10.2 Above high normal [facility] NORMAL RANGES Age WBC RBC HGB HCT [...] HCT IS 5% LESS SOURCE FOR DATA: [employer] 1800 OPERATION MANUAL( AUTOMATED BLOOD COUNTS AND [...] Normal 80 and above >32 mL/min Normal Alb 4.8 g/dL 3.5-5.2 [facility] ([facility] NORMAL RANGES Age WBC RBC HGB HCT [...] HCT IS 5% LESS SOURCE FOR DATA: [employer] 1800 OPERATION MANUAL( AUTOMATED BLOOD COUNTS AND [...] Normal 80 and above >32 mL/min Normal TP 6.9 g/dL 6.6-8.7 [facility] ([facility] NORMAL RANGES Age WBC RBC HGB HCT [...] HCT IS 5% LESS SOURCE FOR DATA: [employer] 1800 OPERATION MANUAL( AUTOMATED BLOOD COUNTS AND [...] Normal 80 and above >32 mL/min Normal A/G Ratio 2.3 CALC [facility] ([facility] NORMAL RANGES Age WBC RBC HGB HCT [...] HCT IS 5% LESS SOURCE FOR DATA: [employer] 1800 OPERATION MANUAL( AUTOMATED BLOOD COUNTS AND [...] Normal 80 and above >32 mL/min Normal Alp 118.7 U/L 40-129 [facility] ([facility] NORMAL RANGES Age WBC RBC HGB HCT [...] Normal 80 and above >32 mL/min Normal Globulin 2.1 CALC [facility] ([facility] NORMAL RANGES Age WBC RBC HGB HCT [...] HCT IS 5% LESS SOURCE FOR DATA: [employer] 1800 OPERATION MANUAL( AUTOMATED BLOOD COUNTS AND [...] Normal 80 and above >32 mL/min Normal Alt (SGPT) 29 U/L 0-41 [facility] ([facility] NORMAL RANGES Age WBC RBC HGB HCT [...] HCT IS 5% LESS SOURCE FOR DATA: [employer] 1800 OPERATION MANUAL( AUTOMATED BLOOD COUNTS AND [...] Normal 80 and above >32 mL/min Normal Ast (Sgot) 18 U/L 0-40 [facility] ([facility] NORMAL RANGES Age WBC RBC HGB HCT [...] HCT IS 5% LESS SOURCE FOR DATA: [employer] 1800 OPERATION MANUAL( AUTOMATED BLOOD COUNTS AND [...] Normal 80 and above >32 mL/min Normal Tbili 0.39 mg/dL 0.0-1.2 [facility] ([facility] NORMAL RANGES Age WBC RBC HGB HCT [...] HCT IS 5% LESS SOURCE FOR DATA: [employer] 1800 OPERATION MANUAL( AUTOMATED BLOOD COUNTS AND [...] Normal 80 and above >32 mL/min Normal Osmolality-Calculated 282.9 [facility]C [facility] ([facility] NORMAL RANGES Age WBC RBC HGB HCT [...] HCT IS 5% LESS SOURCE FOR DATA: [employer] 1800 OPERATION MANUAL( AUTOMATED BLOOD COUNTS AND [...] Normal 80 and above >32 mL/min Normal eGFR 109 # [facility] ( [facility] NORMAL RANGES Age WBC RBC HGB HCT [...] HCT IS 5% LESS SOURCE FOR DATA: [employer] 1800 OPERATION MANUAL( AUTOMATED BLOOD COUNTS AND [...] Normal 80 and above >32 mL/min Normal Anion Gap 18 mmol/L [facility] ([facility] NORMAL RANGES Age WBC RBC HGB HCT [...] HCT IS 5% LESS SOURCE FOR DATA: [employer] 1800 OPERATION MANUAL( AUTOMATED BLOOD COUNTS [...] Normal 80 and above >32 mL/min Normal eGFR Non-Afr. Guamanian 94 # [facility] ([facility] NORMAL RANGES Age WBC RBC HGB HCT [...] HCT IS 5% LESS SOURCE FOR DATA: [employer] 1800 OPERATION MANUAL( AUTOMATED BLOOD COUNTS AND [...] Normal 80 and above >32 mL/min Normal ID Date Data Source [id number] 01/31/2021 10:06:00 AM EDT [facility] ([facility] Name Value Range Interpretation Code Description Data Dina rce(s) Supporting Document(s) WBC 7.7 10E3/uL 4.1-10.9 [facility] ([facility] NORMAL RANGES Age WBC RBC HGB HCT [...] HCT IS 5% LESS SOURCE FOR DATA: [employer] 1800 OPERATION MANUAL( AUTOMATED BLOOD COUNTS [...] Normal 80 and above >32 mL/min Normal RBC 5.10 10E6/uL 4.20-6.30 [facility] NORMAL RANGES Age WBC RBC HGB HCT [...] HCT IS 5% LESS SOURCE FOR DATA: [employer] 1800 OPERATION MANUAL( AUTOMATED BLOOD COUNTS AND [...] Normal 80 and above >32 mL/min Normal HGB 16.0 g/dL 12.0-18.0 [facility] NORMAL RANGES Age WBC RBC HGB HCT [...] HCT IS 5% LESS SOURCE FOR DATA: [employer] 1800 OPERATION MANUAL( AUTOMATED BLOOD COUNTS AND [...] Normal 80 and above >32 mL/min Normal HCT 46.4 % 37.0-51.0 [facility] ([facility] NORMAL RANGES Age WBC RBC HGB HCT [...] HCT IS 5% LESS SOURCE FOR DATA: [employer] 1800 OPERATION MANUAL( AUTOMATED BLOOD COUNTS AND [...] Normal 80 and above >32 mL/min Normal MCV 91.0 fL 80.0-97.0 [facility] NORMAL RANGES Age WBC RBC HGB HCT [...] HCT IS 5% LESS SOURCE FOR DATA: [employer] 1800 OPERATION MANUAL( AUTOMATED BLOOD COUNTS AND [...] Normal 80 and above >32 mL/min Normal MCHC 34.5 g/dL 31.0-36.0 [facility] ([facility] NORMAL RANGES Age WBC RBC HGB HCT [...] HCT IS 5% LESS SOURCE FOR DATA: [employer] 1800 OPERATION MANUAL( AUTOMATED BLOOD COUNTS AND [...] Normal 80 and above >32 mL/min Normal MCH 31.4 pg 26.0-32.0 [facility] ([facility] NORMAL RANGES Age WBC RBC HGB HCT [...] HCT IS 5% LESS SOURCE FOR DATA: [employer] 1800 OPERATION MANUAL( AUTOMATED BLOOD COUNTS AND [...] Normal 80 and above >32 mL/min Normal PLT 301 10E3/uL 140-440 [facility] ([facility] NORMAL RANGES Age WBC RBC HGB HCT [...] HCT IS 5% LESS SOURCE FOR DATA: [employer] 1800 OPERATION MANUAL( AUTOMATED BLOOD COUNTS AND [...] Normal 80 and above >32 mL/min Normal Lym% 21.5 % 10.0-58.5 [facility] ([facility] NORMAL RANGES Age WBC RBC HGB HCT [...] HCT IS 5% LESS SOURCE FOR DATA: [employer] 1800 OPERATION MANUAL( AUTOMATED BLOOD COUNTS AND [...] Normal 80 and above >32 mL/min Normal RDW-CV 13.4 % 11.5-14.5 [facility] ([facility] NORMAL RANGES Age WBC RBC HGB HCT [...] Normal 80 and above >32 mL/min Normal Lym# 1.7 10E3/uL 0.6-4.1 [place] ([facility] NORMAL RANGES Age WBC RBC HGB HCT [...] HCT IS 5% LESS SOURCE FOR DATA: [employer] 1800 OPERATION MANUAL( AUTOMATED BLOOD COUNTS AND [...] Normal 80 and above >32 mL/min Normal MXD% 10.7 % 0.1-24.0 [facility] ([facility] NORMAL RANGES Age WBC RBC HGB HCT [...] HCT IS 5% LESS SOURCE FOR DATA: [employer] 1800 OPERATION MANUAL( AUTOMATED BLOOD COUNTS AND [...] Normal 80 and above >32 mL/min Normal Neut% 67.8 % 37.0-92.0 [facility] ([facility] NORMAL RANGES Age WBC RBC HGB HCT [...] HCT IS 5% LESS SOURCE FOR DATA: [employer] 1800 OPERATION MANUAL( AUTOMATED BLOOD COUNTS AND [...] Normal 80 and above >32 mL/min Normal Neut# 5.2 % 2.0-7.8 [facility] ([facility] NORMAL RANGES Age WBC RBC HGB HCT [...] HCT IS 5% LESS SOURCE FOR DATA: [employer] 1800 OPERATION MANUAL( AUTOMATED BLOOD COUNTS AND [...] Normal 80 and above >32 mL/min Normal MXD# 0.8 10E3/uL 0.0-1.8 [facility] ([facility] NORMAL RANGES Age WBC RBC HGB HCT [...] HCT IS 5% LESS SOURCE FOR DATA: [employer] 1800 OPERATION MANUAL( AUTOMATED BLOOD COUNTS AND [...] Normal 80 and above >32 mL/min Normal MPV 10.1 fL 9.0-13.0 [facility] NORMAL RANGES Age WBC RBC HGB HCT [...] HCT IS 5% LESS SOURCE FOR DATA: [employer] 1800 OPERATION MANUAL( AUTOMATED BLOOD COUNTS AND [...] Normal 80 and above >32 mL/min Normal ID Date Data Source [id number] 12/17/2020 02:39:00 PM EDT [facility] ([facility] Name Value Range Interpretation Code Description Data Dina rce(s) Supporting Document(s) Chol 222 mg/dL 0-200 Above high normal [facility] ([facility] Trig 179 mg/dL 35-200 [facility] ([facility] Cholesterol in HDL [Mass/volume] in Serum or Plasma 53 mg/dL 35-55 [facility] ([facility] LDL_C 133 Calc 75-129 Above high normal [facility] ([facility] Cho/HDL Ratio 4.2 CALC [facility] ([facility] ID Date Data Source [id number] 12/17/2020 02:39:00 PM EDT [facility] ([facility] Name Value Range Interpretation Code Description Data Dina rce(s) Supporting Document(s) Creat 0.9 mg/dL 0.7-1.2 [facility] ([facility] BUN 14 mg/dL 8-23 [facility] ([facility] Glu 102 mg/dL 70-110 [facility] ([facility] Na 142 mmol/L 136-145 [facility] ([facility] BUN/Creatinine Ratio 15.8 Calc [facility] ([facility] K 4.7 mmol/L 3.5-5.1 [facility] ([facility] CL 101.5 mmol/L 98.0-107.0 [facility] ([facility] Co2 24.0 mmol/L 22.0-29.0 [facility] ([facility] TP 6.9 g/dL 6.6-8.7 [facility] ([facility] CA 10.2 mg/dL 8.6-10.2 [facility] ([facility] Alb 4.9 g/dL 3.5-5.2 [facility] ([facility] A/G Ratio 2.4 Calc [facility] ([facility] Globulin 2.0 Calc [facility] ([facility] Alt (SGPT) 26 U/L 0-41 [facility] ([facility] Alp 118.7 U/L 40-129 [facility] Ast (Sgot) 18 U/L 0-40 [facility] ([facility] Osmolality-Calculated 283.2 Calc [facility] ([facility] Tbili 0.26 mg/dL 0.0-1.2 [facility] ([facility] eGFR 109 # [facility] ( [facility] CKD-EPI Anion Gap 21 mmol/L [facility] ([facility] eGFR Non-Afr. Gu[place]ian 94 # [facility] ([facility] CKD-EPI ID Date Data Source [id number] 06/21/2020 02:13:00 PM EDT [facility] ([facility] Name Value Range Interpretation Code Description Data Dina rce(s) Supporting Document(s) Laboratory test finding (navigational concept) Laboratory test result [facility] ([facility] [id number] Laboratory test finding (navigational concept) Laboratory test result [facility] ([facility] [id number] Laboratory test finding (navigational concept) Laboratory test result [facility] ([facility] [id number] Laboratory test finding (navigational concept) Laboratory test result [facility] ([facility] [id number] Laboratory test finding (navigational concept) Laboratory test result [facility] ([facility] [id number] Laboratory test finding (navigational concept) Laboratory test result [facility] ([facility] [id number] Laboratory test finding (navigational concept) Laboratory test result [facility] ([facility] [id number] ID Date Data Source [id number] 06/05/2020 09:07:00 AM EST [facility] ([facility] Name Value Range Interpretation Code Description Data Dina rce(s) Supporting Document(s) Calcidiol [Mass/volume] in Serum or Plasma 28.0 ng/mL 30.0- 100.0 Below low normal [facility] ([facility] ) Vitamin D deficiency has been defined by the [place] of [employer] and an Endocrine Society practice guideline as a level of serum 25-OH vitamin D less than 20 ng/mL (1,2). The Endocrine Society went on to further define vitamin D insufficiency as a level between 21 and 29 ng/mL (2). 1. IOM ([place] of Medicine). 2010. Di etary reference intakes for calcium and D. [place]: The National Academies Press. 2. Bailey MF, Alexa EDOUARD, Lavonne montoya BALDWIN, et al. Evaluation, treatment, and prevention of vitamin D deficiency: an Endocrine Society clinical practice guideline. JCEM. 2010; 96(7):1911-30. ID Date Data Source [id number] 06/05/2020 09:06:00 AM EST [facility] ([facility] Name Value Range Interpretation Code Description Data Dina rce(s) Supporting Document(s) Chol 196 mg/dL 0-200 [facility] ([facility] NORMAL RANGES Age WBC RBC HGB HCT [...] HCT IS 5% LESS SOURCE FOR DATA: [employer] 1800 OPERATION MANUAL( AUTOMATED BLOOD COUNTS AND [...] mL/min Normal 80 and above >32 mL/min NormalCLASSIFICATION CHOLESTEROL FOR ADULTS CHILDREN/ADOLESCENTS* DESIRABLE: <200 MG/DL <170 MG/DL BORDER-LINE HIGH RISK: 200-239 MG/DL 170-199 MG/DL HIGH RISK: >240 MG/DL >200 MG/DL CLASS. FOR PRIMARY LDL CHOL PREVENTION: LDL CHOL-CHILD/ADOLESCENTS* DESIRABLE: <130 MG/DL <110 MG/DL BORDERLINE-HIGH RISK: 130- 159 MG/DL 110-129 MG/DL HIGH RISK: >160 MG/DL >130 MG/DL *CHILDREN AND ADOLESCENTS REPRESENTS INDIVIDUALA AGED 2-19 YEARS EXCLUSIVE. Trig 149 mg/dL 35-200 [facility] ([facility] NORMAL RANGES Age WBC RBC HGB HCT [...] HCT IS 5% LESS SOURCE FOR DATA: [employer] 1800 OPERATION MANUAL( AUTOMATED BLOOD COUNTS AND [...] mL/min Normal 80 and above >32 mL/min NormalCLASSIFICATION CHOLESTEROL FOR ADULTS CHILDREN/ADOLESCENTS* DESIRABLE: <200 MG/DL <170 MG/DL BORDER-LINE HIGH RISK: 200-239 MG/DL 170-199 MG/DL HIGH RISK: >240 MG/DL >200 MG/DL CLASS. FOR PRIMARY LDL CHOL PREVENTION: LDL CHOL-CHILD/ADOLESCENTS* DESIRABLE: <130 MG/DL <110 MG/DL BORDERLINE-HIGH RISK: 130- 159 MG/DL 110-129 MG/DL HIGH RISK: >160 MG/DL >130 MG/DL *CHILDREN AND ADOLESCENTS REPRESENTS INDIVIDUALA AGED 2-19 YEARS EXCLUSIVE. Cholesterol in HDL [Mass/volume] in Serum or Plasma 51 mg/dL 35-55 [facility] ([facility] NORMAL RANGES Age WBC RBC HGB HCT [...] HCT IS 5% LESS SOURCE FOR DATA: [employer] 1800 OPERATION MANUAL( AUTOMATED BLOOD COUNTS AND [...] mL/min Normal 80 and above >32 mL/min NormalCLASSIFICATION CHOLESTEROL FOR ADULTS CHILDREN/ADOLESCENTS* DESIRABLE: <200 MG/DL <170 MG/DL BORDER-LINE HIGH RISK: 200-239 MG/DL 170-199 MG/DL HIGH RISK: >240 MG/DL >200 MG/DL CLASS. FOR PRIMARY LDL CHOL PREVENTION: LDL CHOL-CHILD/ADOLESCENTS* DESIRABLE: <130 MG/DL <110 MG/DL BORDERLINE-HIGH RISK: 130- 159 MG/DL 110-129 MG/DL HIGH RISK: >160 MG/DL >130 MG/DL *CHILDREN AND ADOLESCENTS REPRESENTS INDIVIDUALA AGED 2-19 YEARS EXCLUSIVE. LDL_C 115 Calc 75-129 [facility] ([facility] NORMAL RANGES Age WBC RBC HGB HCT [...] HCT IS 5% LESS SOURCE FOR DATA: [employer] 1800 OPERATION MANUAL( AUTOMATED BLOOD COUNTS AND [...] mL/min Normal 80 and above >32 mL/min NormalCLASSIFICATION CHOLESTEROL FOR ADULTS CHILDREN/ADOLESCENTS* DESIRABLE: <200 MG/DL <170 MG/DL BORDER-LINE HIGH RISK: 200-239 MG/DL 170-199 MG/DL HIGH RISK: >240 MG/DL >200 MG/DL CLASS. FOR PRIMARY LDL CHOL PREVENTION: LDL CHOL-CHILD/ADOLESCENTS* DESIRABLE: <130 MG/DL <110 MG/DL BORDERLINE-HIGH RISK: 130- 159 MG/DL 110-129 MG/DL HIGH RISK: >160 MG/DL >130 MG/DL *CHILDREN AND ADOLESCENTS REPRESENTS INDIVIDUALA AGED 2-19 YEARS EXCLUSIVE. Cho/HDL Ratio 3.8 Jeremy MORGAN ([facility] NORMAL RANGES Age WBC RBC HGB HCT [...] HCT IS 5% LESS SOURCE FOR DATA: [employer] 1800 OPERATION MANUAL( AUTOMATED BLOOD COUNTS AND [...] mL/min Normal 80 and above >32 mL/min NormalCLASSIFICATION CHOLESTEROL FOR ADULTS CHILDREN/ADOLESCENTS* DESIRABLE: <200 MG/DL <170 MG/DL BORDER-LINE HIGH RISK: 200-239 MG/DL 170-199 MG/DL HIGH RISK: >240 MG/DL >200 MG/DL CLASS. FOR PRIMARY LDL CHOL PREVENTION: LDL CHOL-CHILD/ADOLESCENTS* DESIRABLE: <130 MG/DL <110 MG/DL BORDERLINE-HIGH RISK: 130- 159 MG/DL 110-129 MG/DL HIGH RISK: >160 MG/DL >130 MG/DL *CHILDREN AND ADOLESCENTS REPRESENTS INDIVIDUALA AGED 2-19 YEARS EXCLUSIVE. ID Date Data Source [id number] 06/05/2020 09:06:00 AM EST [facility] ([facility] Name Value Range Interpretation Code Description Data Dina rce(s) Supporting Document(s) Glu 104 mg/dL 70-110 [facility] ([facility] NORMAL RANGES Age WBC RBC HGB HCT [...] HCT IS 5% LESS SOURCE FOR DATA: [employer] 1800 OPERATION MANUAL( AUTOMATED BLOOD COUNTS AND [...] mL/min Normal 80 and above >32 mL/min NormalCLASSIFICATION CHOLESTEROL FOR ADULTS CHILDREN/ADOLESCENTS* DESIRABLE: <200 MG/DL <170 MG/DL BORDER-LINE HIGH RISK: 200-239 MG/DL 170-199 MG/DL HIGH RISK: >240 MG/DL >200 MG/DL CLASS. FOR PRIMARY LDL CHOL PREVENTION: LDL CHOL-CHILD/ADOLESCENTS* DESIRABLE: <130 MG/DL <110 MG/DL BORDERLINE-HIGH RISK: 130- 159 MG/DL 110-129 MG/DL HIGH RISK: >160 MG/DL >130 MG/DL *CHILDREN AND ADOLESCENTS REPRESENTS INDIVIDUALA AGED 2-19 YEARS EXCLUSIVE. BUN 15 mg/dL 8-23 [facility] ([facility] NORMAL RANGES Age WBC RBC HGB HCT [...] HCT IS 5% LESS SOURCE FOR DATA: [employer] 1800 OPERATION MANUAL( AUTOMATED BLOOD COUNTS AND [...] mL/min Normal 80 and above >32 mL/min NormalCLASSIFICATION CHOLESTEROL FOR ADULTS CHILDREN/ADOLESCENTS* DESIRABLE: <200 MG/DL <170 MG/DL BORDER-LINE HIGH RISK: 200-239 MG/DL 170-199 MG/DL HIGH RISK: >240 MG/DL >200 MG/DL CLASS. FOR PRIMARY LDL CHOL PREVENTION: LDL CHOL-CHILD/ADOLESCENTS* DESIRABLE: <130 MG/DL <110 MG/DL BORDERLINE-HIGH RISK: 130- 159 MG/DL 110-129 MG/DL HIGH RISK: >160 MG/DL >130 MG/DL *CHILDREN AND ADOLESCENTS REPRESENTS INDIVIDUALA AGED 2-19 YEARS EXCLUSIVE. BUN/Creatinine Ratio 14.8 CALC [facility] ([facility] NORMAL RANGES Age WBC RBC HGB HCT [...] mL/min Normal 80 and above >32 mL/min NormalCLASSIFICATION CHOLESTEROL FOR ADULTS CHILDREN/ADOLESCENTS* DESIRABLE: <200 MG/DL <170 MG/DL BORDER-LINE HIGH RISK: 200-239 MG/DL 170-199 MG/DL HIGH RISK: >240 MG/DL >200 MG/DL CLASS. FOR PRIMARY LDL CHOL PREVENTION: LDL CHOL-CHILD/ADOLESCENTS* DESIRABLE: <130 MG/DL <110 MG/DL BORDERLINE-HIGH RISK: 130- 159 MG/DL 110-129 MG/DL HIGH RISK: >160 MG/DL >130 MG/DL *CHILDREN AND ADOLESCENTS REPRESENTS INDIVIDUALA AGED 2-19 YEARS EXCLUSIVE. Creat 1.0 mg/dL 0.7-1.2 [facility] ([facility] NORMAL RANGES Age WBC RBC HGB HCT [...] HCT IS 5% LESS SOURCE FOR DATA: [employer] 1800 OPERATION MANUAL( AUTOMATED BLOOD COUNTS AND [...] mL/min Normal 80 and above >32 mL/min NormalCLASSIFICATION CHOLESTEROL FOR ADULTS CHILDREN/ADOLESCENTS* DESIRABLE: <200 MG/DL <170 MG/DL BORDER-LINE HIGH RISK: 200-239 MG/DL 170-199 MG/DL HIGH RISK: >240 MG/DL >200 MG/DL CLASS. FOR PRIMARY LDL CHOL PREVENTION: LDL CHOL-CHILD/ADOLESCENTS* DESIRABLE: <130 MG/DL <110 MG/DL BORDERLINE-HIGH RISK: 130- 159 MG/DL 110-129 MG/DL HIGH RISK: >160 MG/DL >130 MG/DL *CHILDREN AND ADOLESCENTS REPRESENTS INDIVIDUALA AGED 2-19 YEARS EXCLUSIVE. Na 142 mmol/L 136-145 [facility] ([facility] NORMAL RANGES Age WBC RBC HGB HCT [...] HCT IS 5% LESS SOURCE FOR DATA: [employer] 1800 OPERATION MANUAL( AUTOMATED BLOOD COUNTS AND [...] mL/min Normal 80 and above >32 mL/min NormalCLASSIFICATION CHOLESTEROL FOR ADULTS CHILDREN/ADOLESCENTS* DESIRABLE: <200 MG/DL <170 MG/DL BORDER-LINE HIGH RISK: 200-239 MG/DL 170-199 MG/DL HIGH RISK: >240 MG/DL >200 MG/DL CLASS. FOR PRIMARY LDL CHOL PREVENTION: LDL CHOL-CHILD/ADOLESCENTS* DESIRABLE: <130 MG/DL <110 MG/DL BORDERLINE-HIGH RISK: 130- 159 MG/DL 110-129 MG/DL HIGH RISK: >160 MG/DL >130 MG/DL *CHILDREN AND ADOLESCENTS REPRESENTS INDIVIDUALA AGED 2-19 YEARS EXCLUSIVE. K 5.5 mmol/L 3.5-5.1 Above high normal [facility] ([facility] NORMAL RANGES Age WBC RBC HGB HCT [...] HCT IS 5% LESS SOURCE FOR DATA: [employer] 1800 OPERATION MANUAL( AUTOMATED BLOOD COUNTS AND [...] mL/min Normal 80 and above >32 mL/min NormalCLASSIFICATION CHOLESTEROL FOR ADULTS CHILDREN/ADOLESCENTS* DESIRABLE: <200 MG/DL <170 MG/DL BORDER-LINE HIGH RISK: 200-239 MG/DL 170-199 MG/DL HIGH RISK: >240 MG/DL >200 MG/DL CLASS. FOR PRIMARY LDL CHOL PREVENTION: LDL CHOL-CHILD/ADOLESCENTS* DESIRABLE: <130 MG/DL <110 MG/DL BORDERLINE-HIGH RISK: 130- 159 MG/DL 110-129 MG/DL HIGH RISK: >160 MG/DL >130 MG/DL *CHILDREN AND ADOLESCENTS REPRESENTS INDIVIDUALA AGED 2-19 YEARS EXCLUSIVE. CL 102.6 mmol/L 98.0-107.0 [facility] ([facility] NORMAL RANGES Age WBC RBC HGB HCT [...] HCT IS 5% LESS SOURCE FOR DATA: [employer] 1800 OPERATION MANUAL( AUTOMATED BLOOD COUNTS AND [...] mL/min Normal 80 and above >32 mL/min NormalCLASSIFICATION CHOLESTEROL FOR ADULTS CHILDREN/ADOLESCENTS* DESIRABLE: <200 MG/DL <170 MG/DL BORDER-LINE HIGH RISK: 200-239 MG/DL 170-199 MG/DL HIGH RISK: >240 MG/DL >200 MG/DL CLASS. FOR PRIMARY LDL CHOL PREVENTION: LDL CHOL-CHILD/ADOLESCENTS* DESIRABLE: <130 MG/DL <110 MG/DL BORDERLINE-HIGH RISK: 130- 159 MG/DL 110-129 MG/DL HIGH RISK: >160 MG/DL >130 MG/DL *CHILDREN AND ADOLESCENTS REPRESENTS INDIVIDUALA AGED 2-19 YEARS EXCLUSIVE. Co2 28.8 mmol/L 22.0-29.0 [facility] ([facility] NORMAL RANGES Age WBC RBC HGB HCT [...] HCT IS 5% LESS SOURCE FOR DATA: [employer] 1800 OPERATION MANUAL( AUTOMATED BLOOD COUNTS AND [...] mL/min Normal 80 and above >32 mL/min NormalCLASSIFICATION CHOLESTEROL FOR ADULTS CHILDREN/ADOLESCENTS* DESIRABLE: <200 MG/DL <170 MG/DL BORDER-LINE HIGH RISK: 200-239 MG/DL 170-199 MG/DL HIGH RISK: >240 MG/DL >200 MG/DL CLASS. FOR PRIMARY LDL CHOL PREVENTION: LDL CHOL-CHILD/ADOLESCENTS* DESIRABLE: <130 MG/DL <110 MG/DL BORDERLINE-HIGH RISK: 130- 159 MG/DL 110-129 MG/DL HIGH RISK: >160 MG/DL >130 MG/DL *CHILDREN AND ADOLESCENTS REPRESENTS INDIVIDUALA AGED 2-19 YEARS EXCLUSIVE. CA 10.5 mg/dL 8.6-10.2 Above high normal [facility] ([facility] NORMAL RANGES Age WBC RBC HGB HCT [...] HCT IS 5% LESS SOURCE FOR DATA: [employer] 1800 OPERATION MANUAL( AUTOMATED BLOOD COUNTS AND [...] mL/min Normal 80 and above >32 mL/min NormalCLASSIFICATION CHOLESTEROL FOR ADULTS CHILDREN/ADOLESCENTS* DESIRABLE: <200 MG/DL <170 MG/DL BORDER-LINE HIGH RISK: 200-239 MG/DL 170-199 MG/DL HIGH RISK: >240 MG/DL >200 MG/DL CLASS. FOR PRIMARY LDL CHOL PREVENTION: LDL CHOL-CHILD/ADOLESCENTS* DESIRABLE: <130 MG/DL <110 MG/DL BORDERLINE-HIGH RISK: 130- 159 MG/DL 110-129 MG/DL HIGH RISK: >160 MG/DL >130 MG/DL *CHILDREN AND ADOLESCENTS REPRESENTS INDIVIDUALA AGED 2-19 YEARS EXCLUSIVE. Alb 4.7 g/dL 3.5-5.2 [facility] ([facility] NORMAL RANGES Age WBC RBC HGB HCT [...] HCT IS 5% LESS SOURCE FOR DATA: [employer] 1800 OPERATION MANUAL( AUTOMATED BLOOD COUNTS AND [...] mL/min Normal 80 and above >32 mL/min NormalCLASSIFICATION CHOLESTEROL FOR ADULTS CHILDREN/ADOLESCENTS* DESIRABLE: <200 MG/DL <170 MG/DL BORDER-LINE HIGH RISK: 200-239 MG/DL 170-199 MG/DL HIGH RISK: >240 MG/DL >200 MG/DL CLASS. FOR PRIMARY LDL CHOL PREVENTION: LDL CHOL-CHILD/ADOLESCENTS* DESIRABLE: <130 MG/DL <110 MG/DL BORDERLINE-HIGH RISK: 130- 159 MG/DL 110-129 MG/DL HIGH RISK: >160 MG/DL >130 MG/DL *CHILDREN AND ADOLESCENTS REPRESENTS INDIVIDUALA AGED 2-19 YEARS EXCLUSIVE. TP 7.1 g/dL 6.6-8.7 [facility] ([facility] NORMAL RANGES Age WBC RBC HGB HCT [...] HCT IS 5% LESS SOURCE FOR DATA: [employer] 1800 OPERATION MANUAL( AUTOMATED BLOOD COUNTS AND [...] mL/min Normal 80 and above >32 mL/min NormalCLASSIFICATION CHOLESTEROL FOR ADULTS CHILDREN/ADOLESCENTS* DESIRABLE: <200 MG/DL <170 MG/DL BORDER-LINE HIGH RISK: 200-239 MG/DL 170-199 MG/DL HIGH RISK: >240 MG/DL >200 MG/DL CLASS. FOR PRIMARY LDL CHOL PREVENTION: LDL CHOL-CHILD/ADOLESCENTS* DESIRABLE: <130 MG/DL <110 MG/DL BORDERLINE-HIGH RISK: 130- 159 MG/DL 110-129 MG/DL HIGH RISK: >160 MG/DL >130 MG/DL *CHILDREN AND ADOLESCENTS REPRESENTS INDIVIDUALA AGED 2-19 YEARS EXCLUSIVE. Globulin 2.4 CALC [facility] ([facility] NORMAL RANGES Age WBC RBC HGB HCT [...] HCT IS 5% LESS SOURCE FOR DATA: [employer] 1800 OPERATION MANUAL( AUTOMATED BLOOD COUNTS AND [...] mL/min Normal 80 and above >32 mL/min NormalCLASSIFICATION CHOLESTEROL FOR ADULTS CHILDREN/ADOLESCENTS* DESIRABLE: <200 MG/DL <170 MG/DL BORDER-LINE HIGH RISK: 200-239 MG/DL 170-199 MG/DL HIGH RISK: >240 MG/DL >200 MG/DL CLASS. FOR PRIMARY LDL CHOL PREVENTION: LDL CHOL-CHILD/ADOLESCENTS* DESIRABLE: <130 MG/DL <110 MG/DL BORDERLINE-HIGH RISK: 130- 159 MG/DL 110-129 MG/DL HIGH RISK: >160 MG/DL >130 MG/DL *CHILDREN AND ADOLESCENTS REPRESENTS INDIVIDUALA AGED 2-19 YEARS EXCLUSIVE. A/G Ratio 1.9 CALC [facility] ([facility] NORMAL RANGES Age WBC RBC HGB HCT [...] HCT IS 5% LESS SOURCE FOR DATA: [employer] 1800 OPERATION MANUAL( AUTOMATED BLOOD COUNTS [...] mL/min Normal 80 and above >32 mL/min NormalCLASSIFICATION CHOLESTEROL FOR ADULTS CHILDREN/ADOLESCENTS* DESIRABLE: <200 MG/DL <170 MG/DL BORDER-LINE HIGH RISK: 200-239 MG/DL 170-199 MG/DL HIGH RISK: >240 MG/DL >200 MG/DL CLASS. FOR PRIMARY LDL CHOL PREVENTION: LDL CHOL-CHILD/ADOLESCENTS* DESIRABLE: <130 MG/DL <110 MG/DL BORDERLINE-HIGH RISK: 130- 159 MG/DL 110-129 MG/DL HIGH RISK: >160 MG/DL >130 MG/DL *CHILDREN AND ADOLESCENTS REPRESENTS INDIVIDUALA AGED 2-19 YEARS EXCLUSIVE. Alp 118.4 U/L 40-129 [facility] ([facility] NORMAL RANGES Age WBC RBC HGB HCT [...] HCT IS 5% LESS SOURCE FOR DATA: [employer] 1800 OPERATION MANUAL( AUTOMATED BLOOD COUNTS AND [...] mL/min Normal 80 and above >32 mL/min NormalCLASSIFICATION CHOLESTEROL FOR ADULTS CHILDREN/ADOLESCENTS* DESIRABLE: <200 MG/DL <170 MG/DL BORDER-LINE HIGH RISK: 200-239 MG/DL 170-199 MG/DL HIGH RISK: >240 MG/DL >200 MG/DL CLASS. FOR PRIMARY LDL CHOL PREVENTION: LDL CHOL-CHILD/ADOLESCENTS* DESIRABLE: <130 MG/DL <110 MG/DL BORDERLINE-HIGH RISK: 130- 159 MG/DL 110-129 MG/DL HIGH RISK: >160 MG/DL >130 MG/DL *CHILDREN AND ADOLESCENTS REPRESENTS INDIVIDUALA AGED 2-19 YEARS EXCLUSIVE. Alt (SGPT) 27 U/L 0-41 [facility] NORMAL RANGES Age WBC RBC HGB HCT [...] HCT IS 5% LESS SOURCE FOR DATA: [employer] 1800 OPERATION MANUAL( AUTOMATED BLOOD COUNTS [...] mL/min Normal 80 and above >32 mL/min NormalCLASSIFICATION CHOLESTEROL FOR ADULTS CHILDREN/ADOLESCENTS* DESIRABLE: <200 MG/DL <170 MG/DL BORDER-LINE HIGH RISK: 200-239 MG/DL 170-199 MG/DL HIGH RISK: >240 MG/DL >200 MG/DL CLASS. FOR PRIMARY LDL CHOL PREVENTION: LDL CHOL-CHILD/ADOLESCENTS* DESIRABLE: <130 MG/DL <110 MG/DL BORDERLINE-HIGH RISK: 130- 159 MG/DL 110-129 MG/DL HIGH RISK: >160 MG/DL >130 MG/DL *CHILDREN AND ADOLESCENTS REPRESENTS INDIVIDUALA AGED 2-19 YEARS EXCLUSIVE. Ast (Sgot) 19 U/L 0-40 [facility] ([facility] NORMAL RANGES Age WBC RBC HGB HCT [...] HCT IS 5% LESS SOURCE FOR DATA: [employer] 1800 OPERATION MANUAL( AUTOMATED BLOOD COUNTS AND [...] mL/min Normal 80 and above >32 mL/min NormalCLASSIFICATION CHOLESTEROL FOR ADULTS CHILDREN/ADOLESCENTS* DESIRABLE: <200 MG/DL <170 MG/DL BORDER-LINE HIGH RISK: 200-239 MG/DL 170-199 MG/DL HIGH RISK: >240 MG/DL >200 MG/DL CLASS. FOR PRIMARY LDL CHOL PREVENTION: LDL CHOL-CHILD/ADOLESCENTS* DESIRABLE: <130 MG/DL <110 MG/DL BORDERLINE-HIGH RISK: 130- 159 MG/DL 110-129 MG/DL HIGH RISK: >160 MG/DL >130 MG/DL *CHILDREN AND ADOLESCENTS REPRESENTS INDIVIDUALA AGED 2-19 YEARS EXCLUSIVE. Tbili 0.35 mg/dL 0.0-1.2 [facility] NORMAL RANGES Age WBC RBC HGB HCT [...] HCT IS 5% LESS SOURCE FOR DATA: [employer] 1800 OPERATION MANUAL( AUTOMATED BLOOD COUNTS AND [...] mL/min Normal 80 and above >32 mL/min NormalCLASSIFICATION CHOLESTEROL FOR ADULTS CHILDREN/ADOLESCENTS* DESIRABLE: <200 MG/DL <170 MG/DL BORDER-LINE HIGH RISK: 200-239 MG/DL 170-199 MG/DL HIGH RISK: >240 MG/DL >200 MG/DL CLASS. FOR PRIMARY LDL CHOL PREVENTION: LDL CHOL-CHILD/ADOLESCENTS* DESIRABLE: <130 MG/DL <110 MG/DL BORDERLINE-HIGH RISK: 130- 159 MG/DL 110-129 MG/DL HIGH RISK: >160 MG/DL >130 MG/DL *CHILDREN AND ADOLESCENTS REPRESENTS INDIVIDUALA AGED 2-19 YEARS EXCLUSIVE. Osmolality-Calculated 284.5 [facility] ([facility] NORMAL RANGES Age WBC RBC HGB HCT [...] HCT IS 5% LESS SOURCE FOR DATA: [employer] 1800 OPERATION MANUAL( AUTOMATED BLOOD COUNTS AND [...] mL/min Normal 80 and above >32 mL/min NormalCLASSIFICATION CHOLESTEROL FOR ADULTS CHILDREN/ADOLESCENTS* DESIRABLE: <200 MG/DL <170 MG/DL BORDER-LINE HIGH RISK: 200-239 MG/DL 170-199 MG/DL HIGH RISK: >240 MG/DL >200 MG/DL CLASS. FOR PRIMARY LDL CHOL PREVENTION: LDL CHOL-CHILD/ADOLESCENTS* DESIRABLE: <130 MG/DL <110 MG/DL BORDERLINE-HIGH RISK: 130- 159 MG/DL 110-129 MG/DL HIGH RISK: >160 MG/DL >130 MG/DL *CHILDREN AND ADOLESCENTS REPRESENTS INDIVIDUALA AGED 2-19 YEARS EXCLUSIVE. Anion Gap 16 mmol/L [facility] ([facility] NORMAL RANGES Age WBC RBC HGB HCT [...] HCT IS 5% LESS SOURCE FOR DATA: [employer] 1800 OPERATION MANUAL( AUTOMATED BLOOD COUNTS AND [...] mL/min Normal 80 and above >32 mL/min NormalCLASSIFICATION CHOLESTEROL FOR ADULTS CHILDREN/ADOLESCENTS* DESIRABLE: <200 MG/DL <170 MG/DL BORDER-LINE HIGH RISK: 200-239 MG/DL 170-199 MG/DL HIGH RISK: >240 MG/DL >200 MG/DL CLASS. FOR PRIMARY LDL CHOL PREVENTION: LDL CHOL-CHILD/ADOLESCENTS* DESIRABLE: <130 MG/DL <110 MG/DL BORDERLINE-HIGH RISK: 130- 159 MG/DL 110-129 MG/DL HIGH RISK: >160 MG/DL >130 MG/DL *CHILDREN AND ADOLESCENTS REPRESENTS INDIVIDUALA AGED 2-19 YEARS EXCLUSIVE. eGFR Non-Afr. [place] 83 # [facility] ([facility] NORMAL RANGES Age WBC RBC HGB HCT [...] HCT IS 5% LESS SOURCE FOR DATA: [employer] 1800 OPERATION MANUAL( AUTOMATED BLOOD COUNTS AND [...] mL/min Normal 80 and above >32 mL/min NormalCLASSIFICATION CHOLESTEROL FOR ADULTS CHILDREN/ADOLESCENTS* DESIRABLE: <200 MG/DL <170 MG/DL BORDER-LINE HIGH RISK: 200-239 MG/DL 170-199 MG/DL HIGH RISK: >240 MG/DL >200 MG/DL CLASS. FOR PRIMARY LDL CHOL PREVENTION: LDL CHOL-CHILD/ADOLESCENTS* DESIRABLE: <130 MG/DL <110 MG/DL BORDERLINE-HIGH RISK: 130- 159 MG/DL 110-129 MG/DL HIGH RISK: >160 MG/DL >130 MG/DL *CHILDREN AND ADOLESCENTS REPRESENTS INDIVIDUALA AGED 2-19 YEARS EXCLUSIVE. eGFR 96 # [facility] ( [facility] NORMAL RANGES Age WBC RBC HGB HCT [...] HCT IS 5% LESS SOURCE FOR DATA: [employer] 1800 OPERATION MANUAL( AUTOMATED BLOOD COUNTS AND [...] mL/min Normal 80 and above >32 mL/min NormalCLASSIFICATION CHOLESTEROL FOR ADULTS CHILDREN/ADOLESCENTS* DESIRABLE: <200 MG/DL <170 MG/DL BORDER-LINE HIGH RISK: 200-239 MG/DL 170-199 MG/DL HIGH RISK: >240 MG/DL >200 MG/DL CLASS. FOR PRIMARY LDL CHOL PREVENTION: LDL CHOL-CHILD/ADOLESCENTS* DESIRABLE: <130 MG/DL <110 MG/DL BORDERLINE-HIGH RISK: 130- 159 MG/DL 110-129 MG/DL HIGH RISK: >160 MG/DL >130 MG/DL *CHILDREN AND ADOLESCENTS REPRESENTS INDIVIDUALA AGED 2-19 YEARS EXCLUSIVE. ID Date Data Source [id number] 06/05/2020 09:06:00 AM EST [facility] ([facility] Name Value Range Interpretation Code Description Data Dina rce(s) Supporting Document(s) WBC 6.3 10E3/uL 4.1-10.9 [facility] ([facility] NORMAL RANGES Age WBC RBC HGB HCT [...] HCT IS 5% LESS SOURCE FOR DATA: [employer] 1800 OPERATION MANUAL( AUTOMATED BLOOD COUNTS AND [...] mL/min Normal 80 and above >32 mL/min NormalCLASSIFICATION CHOLESTEROL FOR ADULTS CHILDREN/ADOLESCENTS* DESIRABLE: <200 MG/DL <170 MG/DL BORDER-LINE HIGH RISK: 200-239 MG/DL 170-199 MG/DL HIGH RISK: >240 MG/DL >200 MG/DL CLASS. FOR PRIMARY LDL CHOL PREVENTION: LDL CHOL-CHILD/ADOLESCENTS* DESIRABLE: <130 MG/DL <110 MG/DL BORDERLINE-HIGH RISK: 130- 159 MG/DL 110-129 MG/DL HIGH RISK: >160 MG/DL >130 MG/DL *CHILDREN AND ADOLESCENTS REPRESENTS INDIVIDUALA AGED 2-19 YEARS EXCLUSIVE. RBC 4.96 10E6/uL 07.17-6 [place] ([facility] NORMAL RANGES Age WBC RBC HGB HCT [...] HCT IS 5% LESS SOURCE FOR DATA: [employer] 1800 OPERATION MANUAL( AUTOMATED BLOOD COUNTS AND [...] mL/min Normal 80 and above >32 mL/min NormalCLASSIFICATION CHOLESTEROL FOR ADULTS CHILDREN/ADOLESCENTS* DESIRABLE: <200 MG/DL <170 MG/DL BORDER-LINE HIGH RISK: 200-239 MG/DL 170-199 MG/DL HIGH RISK: >240 MG/DL >200 MG/DL CLASS. FOR PRIMARY LDL CHOL PREVENTION: LDL CHOL-CHILD/ADOLESCENTS* DESIRABLE: <130 MG/DL <110 MG/DL BORDERLINE-HIGH RISK: 130- 159 MG/DL 110-129 MG/DL HIGH RISK: >160 MG/DL >130 MG/DL *CHILDREN AND ADOLESCENTS REPRESENTS INDIVIDUALA AGED 2-19 YEARS EXCLUSIVE. HCT 45.1 % 37.0-51.0 [facility] ([facility] NORMAL RANGES Age WBC RBC HGB HCT [...] HCT IS 5% LESS SOURCE FOR DATA: [employer] 1800 OPERATION MANUAL( AUTOMATED BLOOD COUNTS AND [...] mL/min Normal 80 and above >32 mL/min NormalCLASSIFICATION CHOLESTEROL FOR ADULTS CHILDREN/ADOLESCENTS* DESIRABLE: <200 MG/DL <170 MG/DL BORDER-LINE HIGH RISK: 200-239 MG/DL 170-199 MG/DL HIGH RISK: >240 MG/DL >200 MG/DL CLASS. FOR PRIMARY LDL CHOL PREVENTION: LDL CHOL-CHILD/ADOLESCENTS* DESIRABLE: <130 MG/DL <110 MG/DL BORDERLINE-HIGH RISK: 130- 159 MG/DL 110-129 MG/DL HIGH RISK: >160 MG/DL >130 MG/DL *CHILDREN AND ADOLESCENTS REPRESENTS INDIVIDUALA AGED 2-19 YEARS EXCLUSIVE. HGB 15.2 g/dL 12.0-18.0 [facility] NORMAL RANGES Age WBC RBC HGB HCT [...] HCT IS 5% LESS SOURCE FOR DATA: [employer] 1800 OPERATION MANUAL( AUTOMATED BLOOD COUNTS AND [...] mL/min Normal 80 and above >32 mL/min NormalCLASSIFICATION CHOLESTEROL FOR ADULTS CHILDREN/ADOLESCENTS* DESIRABLE: <200 MG/DL <170 MG/DL BORDER-LINE HIGH RISK: 200-239 MG/DL 170-199 MG/DL HIGH RISK: >240 MG/DL >200 MG/DL CLASS. FOR PRIMARY LDL CHOL PREVENTION: LDL CHOL-CHILD/ADOLESCENTS* DESIRABLE: <130 MG/DL <110 MG/DL BORDERLINE-HIGH RISK: 130- 159 MG/DL 110-129 MG/DL HIGH RISK: >160 MG/DL >130 MG/DL *CHILDREN AND ADOLESCENTS REPRESENTS INDIVIDUALA AGED 2-19 YEARS EXCLUSIVE. MCV 90.9 fL 80.0-97.0 [facility] ([facility] NORMAL RANGES Age WBC RBC HGB HCT [...] HCT IS 5% LESS SOURCE FOR DATA: [employer] 1800 OPERATION MANUAL( AUTOMATED BLOOD COUNTS [...] mL/min Normal 80 and above >32 mL/min NormalCLASSIFICATION CHOLESTEROL FOR ADULTS CHILDREN/ADOLESCENTS* DESIRABLE: <200 MG/DL <170 MG/DL BORDER-LINE HIGH RISK: 200-239 MG/DL 170-199 MG/DL HIGH RISK: >240 MG/DL >200 MG/DL CLASS. FOR PRIMARY LDL CHOL PREVENTION: LDL CHOL-CHILD/ADOLESCENTS* DESIRABLE: <130 MG/DL <110 MG/DL BORDERLINE-HIGH RISK: 130- 159 MG/DL 110-129 MG/DL HIGH RISK: >160 MG/DL >130 MG/DL *CHILDREN AND ADOLESCENTS REPRESENTS INDIVIDUALA AGED 2-19 YEARS EXCLUSIVE. MCH 30.6 pg 26.0-32.0 [facility] ([facility] NORMAL RANGES Age WBC RBC HGB HCT [...] HCT IS 5% LESS SOURCE FOR DATA: [employer] 1800 OPERATION MANUAL( AUTOMATED BLOOD COUNTS AND [...] mL/min Normal 80 and above >32 mL/min NormalCLASSIFICATION CHOLESTEROL FOR ADULTS CHILDREN/ADOLESCENTS* DESIRABLE: <200 MG/DL <170 MG/DL BORDER-LINE HIGH RISK: 200-239 MG/DL 170-199 MG/DL HIGH RISK: >240 MG/DL >200 MG/DL CLASS. FOR PRIMARY LDL CHOL PREVENTION: LDL CHOL-CHILD/ADOLESCENTS* DESIRABLE: <130 MG/DL <110 MG/DL BORDERLINE-HIGH RISK: 130- 159 MG/DL 110-129 MG/DL HIGH RISK: >160 MG/DL >130 MG/DL *CHILDREN AND ADOLESCENTS REPRESENTS INDIVIDUALA AGED 2-19 YEARS EXCLUSIVE. MCHC 33.7 g/dL 31.0-36.0 [facility] ([facility] NORMAL RANGES Age WBC RBC HGB HCT [...] HCT IS 5% LESS SOURCE FOR DATA: [employer] 1800 OPERATION MANUAL( AUTOMATED BLOOD COUNTS AND [...] mL/min Normal 80 and above >32 mL/min NormalCLASSIFICATION CHOLESTEROL FOR ADULTS CHILDREN/ADOLESCENTS* DESIRABLE: <200 MG/DL <170 MG/DL BORDER-LINE HIGH RISK: 200-239 MG/DL 170-199 MG/DL HIGH RISK: >240 MG/DL >200 MG/DL CLASS. FOR PRIMARY LDL CHOL PREVENTION: LDL CHOL-CHILD/ADOLESCENTS* DESIRABLE: <130 MG/DL <110 MG/DL BORDERLINE-HIGH RISK: 130- 159 MG/DL 110-129 MG/DL HIGH RISK: >160 MG/DL >130 MG/DL *CHILDREN AND ADOLESCENTS REPRESENTS INDIVIDUALA AGED 2-19 YEARS EXCLUSIVE. RDW-CV 13.8 % 11.5-14.5 [facility] ([facility] NORMAL RANGES Age WBC RBC HGB HCT [...] HCT IS 5% LESS SOURCE FOR DATA: [employer] 1800 OPERATION MANUAL( AUTOMATED BLOOD COUNTS [...] mL/min Normal 80 and above >32 mL/min NormalCLASSIFICATION CHOLESTEROL FOR ADULTS CHILDREN/ADOLESCENTS* DESIRABLE: <200 MG/DL <170 MG/DL BORDER-LINE HIGH RISK: 200-239 MG/DL 170-199 MG/DL HIGH RISK: >240 MG/DL >200 MG/DL CLASS. FOR PRIMARY LDL CHOL PREVENTION: LDL CHOL-CHILD/ADOLESCENTS* DESIRABLE: <130 MG/DL <110 MG/DL BORDERLINE-HIGH RISK: 130- 159 MG/DL 110-129 MG/DL HIGH RISK: >160 MG/DL >130 MG/DL *CHILDREN AND ADOLESCENTS REPRESENTS INDIVIDUALA AGED 2-19 YEARS EXCLUSIVE. PLT 279 10E3/uL 140-440 [facility] ([facility] NORMAL RANGES Age WBC RBC HGB HCT [...] HCT IS 5% LESS SOURCE FOR DATA: [employer] 1800 OPERATION MANUAL( AUTOMATED BLOOD COUNTS AND [...] mL/min Normal 80 and above >32 mL/min NormalCLASSIFICATION CHOLESTEROL FOR ADULTS CHILDREN/ADOLESCENTS* DESIRABLE: <200 MG/DL <170 MG/DL BORDER-LINE HIGH RISK: 200-239 MG/DL 170-199 MG/DL HIGH RISK: >240 MG/DL >200 MG/DL CLASS. FOR PRIMARY LDL CHOL PREVENTION: LDL CHOL-CHILD/ADOLESCENTS* DESIRABLE: <130 MG/DL <110 MG/DL BORDERLINE-HIGH RISK: 130- 159 MG/DL 110-129 MG/DL HIGH RISK: >160 MG/DL >130 MG/DL *CHILDREN AND ADOLESCENTS REPRESENTS INDIVIDUALA AGED 2-19 YEARS EXCLUSIVE. Lym% 31.0 % 10.0-58.5 [facility] ([facility] NORMAL RANGES Age WBC RBC HGB HCT [...] HCT IS 5% LESS SOURCE FOR DATA: [employer] 1800 OPERATION MANUAL( AUTOMATED BLOOD COUNTS AND [...] mL/min Normal 80 and above >32 mL/min NormalCLASSIFICATION CHOLESTEROL FOR ADULTS CHILDREN/ADOLESCENTS* DESIRABLE: <200 MG/DL <170 MG/DL BORDER-LINE HIGH RISK: 200-239 MG/DL 170-199 MG/DL HIGH RISK: >240 MG/DL >200 MG/DL CLASS. FOR PRIMARY LDL CHOL PREVENTION: LDL CHOL-CHILD/ADOLESCENTS* DESIRABLE: <130 MG/DL <110 MG/DL BORDERLINE-HIGH RISK: 130- 159 MG/DL 110-129 MG/DL HIGH RISK: >160 MG/DL >130 MG/DL *CHILDREN AND ADOLESCENTS REPRESENTS INDIVIDUALA AGED 2-19 YEARS EXCLUSIVE. Neut% 57.1 % 37.0-92.0 [facility] ([facility] NORMAL RANGES Age WBC RBC HGB HCT [...] HCT IS 5% LESS SOURCE FOR DATA: [employer] 1800 OPERATION MANUAL( AUTOMATED BLOOD COUNTS AND [...] mL/min Normal 80 and above >32 mL/min NormalCLASSIFICATION CHOLESTEROL FOR ADULTS CHILDREN/ADOLESCENTS* DESIRABLE: <200 MG/DL <170 MG/DL BORDER-LINE HIGH RISK: 200-239 MG/DL 170-199 MG/DL HIGH RISK: >240 MG/DL >200 MG/DL CLASS. FOR PRIMARY LDL CHOL PREVENTION: LDL CHOL-CHILD/ADOLESCENTS* DESIRABLE: <130 MG/DL <110 MG/DL BORDERLINE-HIGH RISK: 130- 159 MG/DL 110-129 MG/DL HIGH RISK: >160 MG/DL >130 MG/DL *CHILDREN AND ADOLESCENTS REPRESENTS INDIVIDUALA AGED 2-19 YEARS EXCLUSIVE. MXD% 11.9 % 0.1-24.0 [facility] ([facility] NORMAL RANGES Age WBC RBC HGB HCT [...] HCT IS 5% LESS SOURCE FOR DATA: [employer] 1800 OPERATION MANUAL( AUTOMATED BLOOD COUNTS AND [...] mL/min Normal 80 and above >32 mL/min NormalCLASSIFICATION CHOLESTEROL FOR ADULTS CHILDREN/ADOLESCENTS* DESIRABLE: <200 MG/DL <170 MG/DL BORDER-LINE HIGH RISK: 200-239 MG/DL 170-199 MG/DL HIGH RISK: >240 MG/DL >200 MG/DL CLASS. FOR PRIMARY LDL CHOL PREVENTION: LDL CHOL-CHILD/ADOLESCENTS* DESIRABLE: <130 MG/DL <110 MG/DL BORDERLINE-HIGH RISK: 130- 159 MG/DL 110-129 MG/DL HIGH RISK: >160 MG/DL >130 MG/DL *CHILDREN AND ADOLESCENTS REPRESENTS INDIVIDUALA AGED 2-19 YEARS EXCLUSIVE. Lym# 2.0 10E3/uL 0.6-4.1 [facility] ([facility] NORMAL RANGES Age WBC RBC HGB HCT [...] HCT IS 5% LESS SOURCE FOR DATA: [employer] 1800 OPERATION MANUAL( AUTOMATED BLOOD COUNTS AND [...] mL/min Normal 80 and above >32 mL/min NormalCLASSIFICATION CHOLESTEROL FOR ADULTS CHILDREN/ADOLESCENTS* DESIRABLE: <200 MG/DL <170 MG/DL BORDER-LINE HIGH RISK: 200-239 MG/DL 170-199 MG/DL HIGH RISK: >240 MG/DL >200 MG/DL CLASS. FOR PRIMARY LDL CHOL PREVENTION: LDL CHOL-CHILD/ADOLESCENTS* DESIRABLE: <130 MG/DL <110 MG/DL BORDERLINE-HIGH RISK: 130- 159 MG/DL 110-129 MG/DL HIGH RISK: >160 MG/DL >130 MG/DL *CHILDREN AND ADOLESCENTS REPRESENTS INDIVIDUALA AGED 2-19 YEARS EXCLUSIVE. Neut# 3.6 % 2.0-7.8 [facility] ([facility] NORMAL RANGES Age WBC RBC HGB HCT [...] HCT IS 5% LESS SOURCE FOR DATA: [employer] 1800 OPERATION MANUAL( AUTOMATED BLOOD COUNTS AND [...] mL/min Normal 80 and above >32 mL/min NormalCLASSIFICATION CHOLESTEROL FOR ADULTS CHILDREN/ADOLESCENTS* DESIRABLE: <200 MG/DL <170 MG/DL BORDER-LINE HIGH RISK: 200-239 MG/DL 170-199 MG/DL HIGH RISK: >240 MG/DL >200 MG/DL CLASS. FOR PRIMARY LDL CHOL PREVENTION: LDL CHOL-CHILD/ADOLESCENTS* DESIRABLE: <130 MG/DL <110 MG/DL BORDERLINE-HIGH RISK: 130- 159 MG/DL 110-129 MG/DL HIGH RISK: >160 MG/DL >130 MG/DL *CHILDREN AND ADOLESCENTS REPRESENTS INDIVIDUALA AGED 2-19 YEARS EXCLUSIVE. MPV 10.0 fL 9.0-13.0 [facility] ([facility] NORMAL RANGES Age WBC RBC HGB HCT [...] HCT IS 5% LESS SOURCE FOR DATA: [employer] 1800 OPERATION MANUAL( AUTOMATED BLOOD COUNTS AND [...] mL/min Normal 80 and above >32 mL/min NormalCLASSIFICATION CHOLESTEROL FOR ADULTS CHILDREN/ADOLESCENTS* DESIRABLE: <200 MG/DL <170 MG/DL BORDER-LINE HIGH RISK: 200-239 MG/DL 170-199 MG/DL HIGH RISK: >240 MG/DL >200 MG/DL CLASS. FOR PRIMARY LDL CHOL PREVENTION: LDL CHOL-CHILD/ADOLESCENTS* DESIRABLE: <130 MG/DL <110 MG/DL BORDERLINE-HIGH RISK: 130- 159 MG/DL 110-129 MG/DL HIGH RISK: >160 MG/DL >130 MG/DL *CHILDREN AND ADOLESCENTS REPRESENTS INDIVIDUALA AGED 2-19 YEARS EXCLUSIVE. MXD# 0.7 10E3/uL 0.0-1.8 [facility] ([facility] NORMAL RANGES Age WBC RBC HGB HCT [...] mL/min Normal 80 and above >32 mL/min NormalCLASSIFICATION CHOLESTEROL FOR ADULTS CHILDREN/ADOLESCENTS* DESIRABLE: <200 MG/DL <170 MG/DL BORDER-LINE HIGH RISK: 200-239 MG/DL 170-199 MG/DL HIGH RISK: >240 MG/DL >200 MG/DL CLASS. FOR PRIMARY LDL CHOL PREVENTION: LDL CHOL-CHILD/ADOLESCENTS* DESIRABLE: <130 MG/DL <110 MG/DL BORDERLINE-HIGH RISK: 130- 159 MG/DL 110-129 MG/DL HIGH RISK: >160 MG/DL >130 MG/DL *CHILDREN AND ADOLESCENTS REPRESENTS INDIVIDUALA AGED 2-19 YEARS EXCLUSIVE. ID Date Data Source [id number] 06/05/2020 09:06:00 AM EST [facility] ([facility] Name Value Range Interpretation Code Description Data Dina rce(s) Supporting Document(s) Thyrotropin [Units/volume] in Serum or Plasma 0.975 ulU/mL 0.60-4.8 [facility] ([facility] Procedure Social History No Information Vital Signs ID Date Data Source UNK Name Value Range Interpretation Code Description Data Source(s) Systolic blood pressure 130 mm[Hg] 130 mm[Hg] M EDJAZMÍN ([facility] Diastolic blood pressure 88 mm[Hg] 88 mm[Hg] [facility] ([facility] Body temperature 97.8 [degF] 97.8 [degF] [facility] ([facility] Heart rate 88 /min 88 /min [facility] ([facility] Respiratory rate 16 /min 16 /min [facility] ( [facility] Body height 71 [in_i] 71 [in_i] [facility] ([facility] 5'11" Body weight 206.00 [lb_av] 206.00 [lb_av] MEDEN T ([facility] [place] body weight 172 [lb_av] 172 [lb_av] [facility] T ([facility] Body mass index (BMI) [Ratio] 28.7 kg/m2 28.7 k g/m2 [facility] ([facility] Oxygen saturation in Arterial blood by Pulse oximetry 97 % 97 % [facility] ([facility] [place] body weight 166 [lb_av] 166 [lb_av] [facility] T ([facility]) Body weight 91.854 kg 91.854 kg [facility] ([facility]) Systolic blood pressure 162 mm[Hg] 162 mm[Hg] M EDENT ([facility]) Diastolic blood pressure 96 mm[Hg] 96 mm[Hg] [facility] ([facility]) Body temperature 99.1 [degF] 99.1 [degF] [facility] ([facility] Body height 70 [in_i] 70 [in_i] [facility] ([facility]) 5'10" Body weight 202.50 [lb_av] 202.50 [lb_av] MED[facility] T ([facility]) Body mass index (BMI) [Ratio] 29.1 kg/m2 29.1 k g/m2 [facility] ([facility]) Body surface area Derived from formula 2.10 m2 2.10 m2 [facility] ([facility]) Oxygen saturation in Arterial blood by Pulse oximetry 98 % 98 % [facility] ([facility] [place] body weight 172 [lb_av] 172 [lb_av] MED[facility] T ([facility] Systolic blood pressure 120 mm[Hg] 120 mm[Hg] M EDENT ([facility] Diastolic blood pressure 90 mm[Hg] 90 mm[Hg] [facility] ([facility] Body temperature 97.8 [degF] 97.8 [degF] [facility] ([facility] Heart rate 95 /min 95 /min [facility] ([facility] Respiratory rate 16 /min 16 /min [facility] ( [facility] Body height 71 [in_i] 71 [in_i] [facility] ([facility] 5'11" Body weight 199.00 [lb_av] 199.00 [lb_av] MED[facility] T ([facility] Body mass index (BMI) [Ratio] 27.8 kg/m2 27.8 k g/m2 [facility] ([facility] [place] body weight 172 [lb_av] 172 [lb_av] [facility] T ([facility] Diastolic blood pressure 88 mm[Hg] 88 mm[Hg] [facility] ([facility] Respiratory rate 16 /min 16 /min [facility] ( [facility] Body height 71 [in_i] 71 [in_i] [facility] ([facility] 5'11" Oxygen saturation in Arterial blood by Pulse oximetry 97 % 97 % [facility] ([facility] Systolic blood pressure 138 mm[Hg] 138 mm[Hg] M EDENT ([facility] Body temperature 97.1 [degF] 97.1 [degF] [facility] ([facility] Heart rate 97 /min 97 /min [facility] ([facility] Diastolic blood pressure 88 mm[Hg] 88 mm[Hg] [facility] ([facility] Systolic blood pressure 124 mm[Hg] 124 mm[Hg] M ED[facility] ([facility] Heart rate 93 /min 93 /min [facility] ([facility] Body temperature 97.2 [degF] 97.2 [degF] [facility] ([facility] Respiratory rate 16 /min 16 /min [facility] ( [facility] Body height 71 [in_i] 71 [in_i] [facility] ([facility] 5'11" [place] body weight 172 [lb_av] 172 [lb_av] MEDEN T ([facility] Oxygen saturation in Arterial blood by Pulse oximetry 96 % 96 % [facility] ([facility] Systolic blood pressure 134 mm[Hg] 134 mm[Hg] M EDENT ([facility] Heart rate 93 /min 93 /min [facility] ([facility] Diastolic blood pressure 86 mm[Hg] 86 mm[Hg] [facility] ([facility] Respiratory rate 16 /min 16 /min [facility] ( [facility] Body temperature 97.5 [degF] 97.5 [degF] [facility] ([facility] Body height 71 [in_i] 71 [in_i] [facility] ([facility] 5'11" Body weight 209.00 [lb_av] 209.00 [lb_av] MED[facility] T ([facility] [place] body weight 172 [lb_av] 172 [lb_av] MED[facility] T ([facility] Body mass index (BMI) [Ratio] 29.1 kg/m2 29.1 k g/m2 [facility] ([facility] Oxygen saturation in Arterial blood by Pulse oximetry 96 % 96 % [facility] ([facility] Body weight 198.00 [lb_av] 198.00 [lb_av] MED[facility] T ([facility] Systolic blood pressure 114 mm[Hg] 114 mm[Hg] M EDENT ([facility] [place] body weight 172 [lb_av] 172 [lb_av] MED[facility] T ([facility] Diastolic blood pressure 80 mm[Hg] 80 mm[Hg] [facility] ([facility] Body temperature 98.2 [degF] 98.2 [degF] [facility] ([facility] Heart rate 100 /min 100 /min [facility] ([facility] Body mass index (BMI) [Ratio] 27.6 kg/m2 27.6 k g/m2 [facility] ([facility] Respiratory rate 16 /min 16 /min CATHY ( [facility] Body height 71 [in_i] 71 [in_i] CATHY ([facility] 5'11" Oxygen saturation in Arterial blood by Pulse oximetry 97 % 97 % CATHY ([facility]
[2021-02-07] MEDS ORDERED: BUPIVACAINE/EPIN 0.25% 30 ML VIAL As Ordered ONE (13:32)
[2021-02-07] MEDS ORDERED: ACETAMINOPHEN 1000MG 100ML IV BTL (OFIRMEV) (J0131 PER 10MG) As Ordered ONE (14:05)
[2021-02-07] MEDS ORDERED: fentaNYL 100 MCG/2 ML INJECTION (J3010) As Ordered ONE (14:10)
[2021-02-07] MEDS ORDERED: SUGAMMADEX SODIUM 500 MG/5 ML VIAL (BRIDION) As Ordered ONE (14:18)
[2021-02-07] MEDS ORDERED: KETOROLAC 60MG 2ML VIAL As Ordered ONE (14:19)
[2021-02-07] MEDS ORDERED: oxyCODONE 5MG TAB PO PRN (15:20)
[2021-02-07] MEDS ORDERED: METOCLOPRAMIDE INJ 10MG/2ML VIAL (J2765 PER 1) IV PRN (15:20)
[2021-02-07] MEDS ORDERED: LR 1,000 ML IV SCH (15:20)
[2021-02-07] MEDS ORDERED: ONDANSETRON 4MG/2ML VIAL IV PRN (15:20)
[2021-02-07] MEDS ORDERED: fentaNYL 100 MCG/2 ML INJECTION (J3010) IV PRN (15:20)
[2021-02-07] MEDS ORDERED: NORCO, ANEXSIA 5/325MG TABLET (HYDROcodone/ACETAMINOPHEN) PO PRN (15:20)
[2021-02-07 16:15] VITALS: BP 118/66
--- NOTE | 2021-02-07 16:59 | RO ---
OPERATIVE NOTE DATE OF OPERATION: 02/07/2021 PREOPERATIVE DIAGNOSIS: Left inguinal hernia. POSTOPERATIVE DIAGNOSIS: Left inguinal hernia. PROCEDURE: Robotic left inguinal hernia repair. SURGEON: Dr. Carlton Anthony RETAIL SALES ADVISOR: Sugey Tineo ANESTHESIA: General. ESTIMATED BLOOD LOSS: 5. COMPLICATIONS: None. INDICATION FOR PROCEDURE: Patient is a 55-year-old male who presented with left groin pain, found to have a large left inguinal hernia. Recommendation was to proceed with robotic repair. Risks and benefits of the procedure not limited to, but including, bleeding, infection, hernia recurrence, damage to surrounding structures, need for further surgery were discussed in with the patient. Informed consent was obtained and procedure was planned. DESCRIPTION OF PROCEDURE: The patient was brought back to operating room #7. After sufficient sedation, the abdomen was sterilely prepped and draped. Next, a time-out was done to confirm proper patient, proper procedure. Following that, an 8 mm incision was made in the left upper quadrant, Veress needle inserted, and the abdomen was insufflated with 15 mmHg. Veress needle was then removed, and an 8 mm Optiview port was used to gain access to the abdomen. Once the abdomen was entered, two more ports were placed, one in the mid abdomen, one in the right upper quadrant. Next, the robot was docked to the ports from the console. The left lower quadrant was examined. There was a large indirect inguinal hernia identified. The peritoneum was then entered with a curved incision just anterior to the hernia. Preperitoneal space was then dissected free using a combination of blunt and sharp dissection, heading medially and laterally all the way to the pubic symphysis. Once the pubic symphysis was identified, the hernia sac was encircled. It was then carefully dissected free and dissected away from all the cord structures. Once the hernia sac was completely dissected free and completely reduced, Bard 3DMax Light medium-sized mesh was placed in the preperitoneal space, sutured to the pubic symphysis with a 2-0 Vicryl suture. Mesh was laid flat inside of the pocket. The peritoneum was then closed over top of the mesh using a 3-0 V-Loc encompassing the hernia sac within the closure. Once this was all completed, the needles were removed. Abdomen was desufflated. Skin incisions were closed with 4-0 Vicryl subcuticular suture. The abdomen was cleaned and dried. Steri-Strips, 4 x 4, and tape were applied, thus ending procedure.
== END 2021-02-07 17:21 | disposition home or self-care (01) ==
LOC: M SDC 08:44
PROVIDERS: ATTEND Surgery
DX: K40.90 Unilateral inguinal hernia, without obstruction or gangrene, not specified as recurrent (principal); Z87.891 Personal history of nicotine dependence; K21.9 Gastro-esophageal reflux disease without esophagitis; Z79.899 Other long term (current) drug therapy; E78.5 Hyperlipidemia, unspecified
CPT/HCPCS: 49650; C1781; J0131; J0690; J1100; J1885; J2250; J2405; J3010; S2900

== ENCOUNTER → 2022-01-07 | Outpatient (CLI) | payer OTHER ==
[~2022-01-07] MED LIST changes: -LIDOCAINE 1% MDV 20ML VIAL SQ PRN; -LIDOCAINE 2% 100MG/5ML SDV (FOR ANES.) As Ordered ONE; -LR 1,000 ML IV ONE; -MIDAZOLAM INJ 2MG/2ML VIAL (J2250 PER 1MG) As Ordered ONE; -ONDANSETRON 4MG/2ML VIAL As Ordered ONE; -ROCURONIUM BROMIDE 50 MG/5 ML VIAL As Ordered ONE; -ceFAZolin SOD 2 GM in IV 1 EA IV ONE; -dexameTHASONE 4 MG/ML 1ML VIAL (J1100 PER 1MG) As Ordered ONE; -fentaNYL 100 MCG/2 ML INJECTION (J3010) As Ordered ONE; -propofoL 200 MG/20 ML VIAL As Ordered ONE
== END ==
LOC: M WUC 09:48
PROVIDERS: ATTEND Physician Assistant
DX: M25.562 Pain in left knee (principal)

== ENCOUNTER → 2022-08-12 | Outpatient (REF) | payer OTHER ==
[2022-08-12 12:21] LABS: HEMOGLOBIN 15.5 g/dl (13.5-17.5); MEAN CORPUSCULAR HEMOGLOBIN 30.4 pg (27.0-33.0); MEAN CORPUSCULAR VOLUME 92.2 fl (80.0-96.0); PLATELET COUNT, AUTOMATED 312 10^3/uL (150-450); WHITE BLOOD COUNT 6.9 10^3/uL (4.0-10.0)
[2022-08-12 12:28] LABS: APPEARANCE, URINE CLEAR (CLEAR); BACTERIA, URINE AUTO NEGATIVE (NEGATIVE); BILIRUBIN, URINE AUTO NEGATIVE (NEGATIVE); BLOOD, URINE BLOOD 1+ (NEGATIVE); COLOR, URINE STRAW (YELLOW); GLUCOSE, URINE (UA) AUTO NEGATIVE (NEGATIVE); KETONE, URINE AUTO NEGATIVE (NEGATIVE); LEUKOCYTE ESTERASE, URINE AUTO NEGATIVE (NEGATIVE); MUCUS, URINE SMALL (NEGATIVE); NITRITE, URINE AUTO NEGATIVE (NEGATIVE); PROTEIN, URINE AUTO NEGATIVE (NEGATIVE); RBC, URINE AUTO 0 /HPF (0-3); SPECIFIC GRAVITY URINE AUTO 1.009 (1.002-1.035); SQUAMOUS EPITHELIAL CELL UR AU 0 /HPF (0-6); UROBILINOGEN, URINE AUTO 0.2 mg/dL (0.0-2.0); WBC, URINE AUTO 1 /HPF (0-3)
[2022-08-12 12:48] LABS: ALBUMIN 3.9 G/DL (3.2-5.2); ALKALINE PHOSPHATASE 117 U/L (46-116); ALT/SGPT 55 U/L (7.0-40); AST/SGOT 28 U/L (<34); BILIRUBIN,TOTAL 0.5 MG/DL (0.3-1.2); BLOOD UREA NITROGEN 15 MG/DL (9-23); CALCIUM LEVEL 9.7 MG/DL (8.5-10.1); CARBON DIOXIDE LEVEL 30 MMOL/L (20-31); CHLORIDE LEVEL 107 MMOL/L (98-107); CHOLESTEROL LEVEL 181 MG/DL (<200); CHOLESTEROL RISK RATIO 3.62 (<5); GLOMERULAR FILTRATION RATE > 60.0 (>56); GLUCOSE, FASTING 95 MG/DL (60-100); POTASSIUM SERUM 5.6 MMOL/L (3.5-5.1); SODIUM LEVEL 143 MMOL/L (136-145); TOTAL PROTEIN 6.9 G/DL (5.7-8.2); TRIGLYCERIDES LEVEL 120 MG/DL (<150)
== END ==
LOC: M LABDRAWC 11:43
PROVIDERS: ATTEND Physician Assistant
DX: E78.5 Hyperlipidemia, unspecified (principal); E83.52 Hypercalcemia; R35.1 Nocturia
CPT/HCPCS: 36415; 80053; 80061; 81001; 84443; 85027; G0103

== ENCOUNTER → 2022-10-02 | Outpatient (REF) | payer OTHER | LOC: M LABDRAWC 11:12 | PROVIDERS: ATTEND Physician Assistant | DX: R31.9 Hematuria, unspecified (principal) ==

== ENCOUNTER → 2023-02-09 | Outpatient (REF) | payer OTHER ==
[2023-02-09 12:03] LABS: HEMATOCRIT 48.9 % (42.0-52.0); MEAN CORPUSCULAR HEMOGLOBIN 30.5 pg (27.0-33.0); MEAN CORPUSCULAR HGB CONC 32.7 g/dl (32.0-36.5); MEAN CORPUSCULAR VOLUME 93.3 fl (80.0-96.0); PLATELET COUNT, AUTOMATED 330 10^3/uL (150-450); RED BLOOD COUNT 5.24 10^6/uL (4.30-6.10); WHITE BLOOD COUNT 7.4 10^3/uL (4.0-10.0)
[2023-02-09 12:12] LABS: ALKALINE PHOSPHATASE 109 U/L (46-116); ALT/SGPT 39 U/L (7.0-40); AST/SGOT 21 U/L (<34); BILIRUBIN,TOTAL 0.5 MG/DL (0.3-1.2); BLOOD UREA NITROGEN 14 MG/DL (9-23); CALCIUM LEVEL 10.2 MG/DL (8.5-10.1); CARBON DIOXIDE LEVEL 30 MMOL/L (20-31); CHLORIDE LEVEL 106 MMOL/L (98-107); CHOLESTEROL LEVEL 204 MG/DL (<200); CHOLESTEROL RISK RATIO 3.85 (<5); CREATININE FOR GFR 0.91 MG/DL (0.70-1.30); GLOMERULAR FILTRATION RATE > 60.0 (>56); GLUCOSE, FASTING 113 MG/DL (60-100); HDL CHOLESTEROL 52.9 MG/DL (>40); LDL CHOLESTEROL 118.5 MG/DL (<100); NON-HDL-C 151.1 MG/DL; POTASSIUM SERUM 5.8 MMOL/L (3.5-5.1); SODIUM LEVEL 144 MMOL/L (136-145); TOTAL PROTEIN 7.1 G/DL (5.7-8.2); TRIGLYCERIDES LEVEL 163 MG/DL (<150)
== END ==
LOC: M LABDRAWC 11:17
PROVIDERS: ATTEND Physician Assistant
DX: E78.5 Hyperlipidemia, unspecified (principal)

== ENCOUNTER → 2023-08-17 | Outpatient (REF) | payer OTHER ==
[2023-08-17 12:20] LABS: APPEARANCE, URINE CLEAR (CLEAR); BACTERIA, URINE AUTO NEGATIVE (NEGATIVE); BILIRUBIN, URINE AUTO NEGATIVE (NEGATIVE); BLOOD, URINE BLOOD 1+ (NEGATIVE); COLOR, URINE YELLOW (YELLOW); GLUCOSE, URINE (UA) AUTO NEGATIVE (NEGATIVE); KETONE, URINE AUTO NEGATIVE (NEGATIVE); LEUKOCYTE ESTERASE, URINE AUTO NEGATIVE (NEGATIVE); NITRITE, URINE AUTO NEGATIVE (NEGATIVE); PROTEIN, URINE AUTO NEGATIVE (NEGATIVE); RBC, URINE AUTO 2 /HPF (0-3); SQUAMOUS EPITHELIAL CELL UR AU 0 /HPF (0-6); UROBILINOGEN, URINE AUTO 0.2 mg/dL (0.0-2.0); WBC, URINE AUTO 4 /HPF (0-3)
[2023-08-17 12:24] LABS: HEMATOCRIT 45.8 % (42.0-52.0); HEMOGLOBIN 15.3 g/dl (13.5-17.5); MEAN CORPUSCULAR HEMOGLOBIN 30.8 pg (27.0-33.0); MEAN CORPUSCULAR HGB CONC 33.4 g/dl (32.0-36.5); MEAN CORPUSCULAR VOLUME 92.2 fl (80.0-96.0); PLATELET COUNT, AUTOMATED 308 10^3/uL (150-450); RED BLOOD COUNT 4.97 10^6/uL (4.30-6.10)
[2023-08-17 12:44] LABS: HEMOGLOBIN A1c 5.5 % (4.0-6.0)
[2023-08-17 12:59] LABS: ALBUMIN 4.1 G/DL (3.2-5.2); ALKALINE PHOSPHATASE 113 U/L (46-116); ALT/SGPT 42 U/L (7.0-40); AST/SGOT 19 U/L (<34); BILIRUBIN,TOTAL 0.7 MG/DL (0.3-1.2); BLOOD UREA NITROGEN 15 MG/DL (9-23); CALCIUM LEVEL 9.8 MG/DL (8.5-10.1); CARBON DIOXIDE LEVEL 30 MMOL/L (20-31); CHLORIDE LEVEL 106 MMOL/L (98-107); CHOLESTEROL LEVEL 184 MG/DL (<200); CHOLESTEROL RISK RATIO 4.09 (<5); GLOMERULAR FILTRATION RATE > 60.0 (>56); GLUCOSE, FASTING 110 MG/DL (60-100); HDL CHOLESTEROL 44.9 MG/DL (>40); LDL CHOLESTEROL 103.5 MG/DL (<100); NON-HDL-C 139.1 MG/DL; POTASSIUM SERUM 5.1 MMOL/L (3.5-5.1); SODIUM LEVEL 142 MMOL/L (136-145); THYROID STIMULATING HORMONE 1.107 uIU/ML (0.55-4.78); TOTAL PROTEIN 6.9 G/DL (5.7-8.2); TRIGLYCERIDES LEVEL 178 MG/DL (<150)
[2023-08-18 07:09] LABS: WHITE BLOOD COUNT 7.2 10^3/uL (4.0-10.0)
== END ==
LOC: M LABDRAWC 11:33
PROVIDERS: ATTEND Physician Assistant
DX: E78.5 Hyperlipidemia, unspecified (principal); R35.1 Nocturia; R73.01 Impaired fasting glucose; R31.9 Hematuria, unspecified

== ENCOUNTER → 2024-02-04 | Outpatient (REF) | payer OTHER ==
[2024-02-04 12:09] LABS: CHOLESTEROL RISK RATIO 4.16 (<5); LDL CHOLESTEROL 127.6 MG/DL (<100)
== END ==
LOC: M LABDRAWC 11:24 → M LAB REF 11:24
PROVIDERS: ATTEND Physician Assistant
DX: E78.5 Hyperlipidemia, unspecified (principal)

== ENCOUNTER → 2025-01-30 | Outpatient (REF) | payer OTHER ==
[~2025-01-30] MED LIST changes: -EZET10TA21 PO; +EZET10TA57 PO
[2025-01-30 13:20] LABS: BASO # 0.1 10^3/uL (0.0-0.2); BASO % 0.6 % (0.0-1.0); EOS # 0.3 10^3/uL (0.0-0.5); EOS % 3.6 % (0.0-3.0); LYMPH # 2.4 10^3/uL (1.5-5.0); LYMPH % 29.0 % (24.0-44.0); MONO # 0.7 10^3/uL (0.0-0.8); MONO % 8.1 % (2.0-8.0); NEUTROPHILS # 4.9 10^3/uL (1.5-8.5); NEUTROPHILS % 58.5 % (36.0-66.0); PLATELET COUNT, AUTOMATED 318 10^3/uL (150-450)
[2025-01-30 14:19] LABS: ALT/SGPT 40.0 U/L (7.0-40); AST/SGOT 24.0 U/L (<34); CALCIUM LEVEL 10.2 MG/DL (8.3-10.6); CARBON DIOXIDE LEVEL 30.0 MMOL/L (20-31); CHLORIDE LEVEL 105.0 MMOL/L (98-107); CHOLESTEROL LEVEL 184.0 MG/DL (<200); CHOLESTEROL RISK RATIO 3.64 (<5); CREATININE FOR GFR 0.97 MG/DL (0.70-1.30); GLOMERULAR FILTRATION RATE 88.8 (>49); LDL CHOLESTEROL 103.3 MG/DL (<100); NON-HDL-C 133.5 MG/DL; POTASSIUM SERUM 6.2 MMOL/L (3.5-5.1); SODIUM LEVEL 144.0 MMOL/L (136-145); TRIGLYCERIDES LEVEL 151.0 MG/DL (<150)
== END ==
LOC: M LABDRAWC 12:06
PROVIDERS: ATTEND Physician Assistant
DX: E78.5 Hyperlipidemia, unspecified (principal); E31.9 Polyglandular dysfunction, unspecified; K21.9 Gastro-esophageal reflux disease without esophagitis